=== PATIENT | male | born 1965 | race Caucasian/White ===

== ENCOUNTER 2020-12-21 13:22 | Emergency (ER) | payer BC, SELFPAY ==
--- NOTE | 2020-12-21 14:05 | ED.SKABFB ---
HPI - Skin/Abscess/Foreign Bdy General Chief complaint: Skin/Abscess/Foreign Body Stated complaint: Rash on Face History of Present Illness HPI narrative: This is a 55-year-old male complaining of itching all over his face he stated that his shaved his face and now his face feels like it is on fire. Prior to shaving his mustache he said that his hair was irritated him but now that he is shaved is irritating even more. Related Data Home Medications Medication Instructions Recorded Confirmed alprazolam 12/21/20 12/21/20 baclofen mg 12/21/20 cetirizine mg 12/21/20 esomeprazole magnesium mg 12/21/20 propranolol PO 12/21/20 sertraline mg 12/21/20 sildenafil 12/21/20 trazodone 12/21/20 Allergies Allergy/AdvReac Type Severity Reaction Status Date / Time No Known Allergies Allergy Verified 12/21/20 14:00 Review of Systems Review of Systems: Facial irritation with erythema due to shaving Reviewed all other symptoms negative except for what is mentioned above [facility] Past Medical History Medical History (Updated 12/21/20 @ 14:22 by Paul Elkins NP) Anxiety Comments At time as signature, I have reviewed and agree with nursing past medical, social, surgical and family history. Please see nursing chart for further information. There is no relevant family history pertinent to the presenting complaint. Exam Narrative: GENERAL:Well-appearing, well-nourished, and in no acute distress. HEAD:Normocephalic, c. EYES: PERRLA ENT: Nares clear, no rhinorrhea or epistaxis. Mucous membranes moist. CHEST: Clear to auscultation. No respiratory distress. HEART: Regular rate and rhythm. . ABDOMEN: Soft, nontender, nondistended, normal active bowel sounds. EXTREMITIES: Normal range of motion. No edema. SKIN: Warm, dry, no rash. Erythema and swelling to facial mustache and lenz area with urticaria NEURO: No focal deficits. Alert and oriented x3. MDM - Skin/Abscess/Foreign Bdy Differential Diagnosis Differential diagnosis: Likely abscess of skin or subcutaneous tissue, urticaria, allergic reaction to drug, cellulitis, eczema, contact dermatitis and other Discharge Plan Discharge Clinical Impression: Dermatitis seborrheica, Encounter for wellness examination Patient Disposition: Home, Self-Care Condition: Stable Instructions: Antibiotic Form, Seborrheic Dermatitis (DC) Additional Instructions: Use skin creams/lotion, such as those containing calamine or pramoxine to reduce itchiness Avoid scratching when possible to prevent worsening of the condition and disruption of the skin that could lead to bacterial infection To relieve itching, place a cool washcloth or some ice over the area that itches, rather than scratching Return to the office or seek ER visit if condition is not improving or worsens with fever, swelling, difficulty breathing or swallowing. Prescriptions: New clotrimazole 1 % cream 1 applic topical BID Qty: 30 RF: 0 prednisone 20 mg tablet 20 mg PO DAILY 5 Days Qty: 5 RF: 0 No Action cetirizine 10 mg tablet RF: 0 alprazolam 1 mg tablet RF: 0 sertraline 100 mg tablet RF: 0 sildenafil 100 mg tablet RF: 0 baclofen 20 mg tablet RF: 0 trazodone 100 mg tablet RF: 0 esomeprazole magnesium 40 mg capsule,delayed release(DR/EC) RF: 0 propranolol 80 mg capsule,extended release 24 hr PO RF: 0 Follow-up/Referrals: PHYSICIAN NOT ON STAFF,NONSTAFF [Primary Care Provider] - Stand Alone Forms: Work/School Release IP Time of Disposition: 14:12
== END 2020-12-21 14:30 | disposition home or self-care (01) ==
PROVIDERS: Emergency Provider Nurse Practitioner Family
DX: L21.9 Seborrheic dermatitis, unspecified (principal); F41.9 Anxiety disorder, unspecified
CPT/HCPCS: 96372; 99213; G0463; J1100

== ENCOUNTER 2021-01-01 11:37 | Observation (INO) | payer BC, SELFPAY ==
[2021-01-01] VITALS (7 sets, daily range): BP systolic 119–157; BP diastolic 69–98; PULSE 57–75; RESP 16–25; TEMP 36.4–38.2; O2SAT 95–100; BMI 29.2
--- NOTE | ~2021-01-01 | XR_ITS ---
EXAMINATION: XR chest 1V portable INDICATION: Cough TECHNIQUE: Portable AP chest at 1225 hours COMPARISON: 04/23/2018 FINDINGS: There are airspace opacities of the lung bases. No pleural effusion or pneumothorax is iden tified. The cardiomediastinal silhouette is normal. There are partially imaged changes of cervical fu artis procedure. IMPRESSION: 1. Bibasilar airspace opacities, consistent with atelectasis versus pneumonia. Reviewed, dictated and finalized at location B. ER PLACEMENT SERVICES COUNSELOR
--- NOTE | ~2021-01-01 | CT_ITS ---
EXAMINATION: CTA chest PE protocol DATE: 01/01/2021 14:03 INDICATION: Hemoptysis. Dyspnea. TECHNIQUE: Computed tomography angiography (CTA) of the chest was performed with 100 mL Omnipaque-350 intravenous contrast timed to evaluate the pulmonary arteries. Coronal maximum intensity projection 3D-reconstructions were created by the technologist. Automated exposure control and iterative reconst ruction technique were employed. The dose-length product was 788.57 mGy-cm. COMPARISON: CT abdomen and pelvis 07/26/2016 FINDINGS: There are patchy ground glass opacities involving the right upper lobe, right middle lobe, and lower lobes. There is mild atelectasis bilaterally. No pleural effusion. The heart size is normal . No pericardial effusion. There are coronary artery calcifications. There is no pulmonary embolus. T here is mild right hilar lymphadenopathy, likely reactive. There are surgical changes of the stomach. There is a small sliding hiatal hernia. There is an old healed fracture of left clavicle. There is m ild thoracic spondylosis. There are changes of anterior fusion procedure in cervical spine. IMPRESSION: 1. No pulmonary embolus. Sensitivity is moderately decreased by motion artifact. 2. Multifocal lung disease, right worse than left, consistent with pneumonia. 3. Mild right hilar lymphadenopathy, reactive. Reviewed, dictated and finalized at location A. [facility] IMPRESSION: 1. No pulmonary embolus. Sensitivity is moderately decreased by motion artifact . 2. Multifocal lung disease, right worse than left, consistent with pneumonia. 3. Mild right hilar lymphadenopathy, reactive.
--- NOTE | 2021-01-01 12:37 | ED.FEVER ---
HPI - Fever General Chief Complaint: Fever Stated Complaint: chills, purcell, vomiting Time Seen by Provider: 01/01/21 12:28 Source: RN notes reviewed History of Present Illness HPI Narrative: Patient presents emergency room from home for upper respiratory infection. Patient states symptoms again approximately 10 days ago. States is associated with subjective fevers, frontal headache, rhinorrhea, sore throat a cough productive of yellow sputum as well as coughing that is producing some bright red blood epigastric abdominal pain and nausea. The patient denies any chest pain he denies any diarrhea. States he took Tylenol approximately 3 hours ago states he has had both of his Covid vaccinations Related Data Home Medications Medication Instructions Recorded Confirmed alprazolam 1 mg PO TID PRN 12/21/20 01/01/21 baclofen 20 mg PO QID 12/21/20 01/01/21 cetirizine 10 mg PO DAILY PRN 12/21/20 01/01/21 esomeprazole magnesium 40 mg PO BID 12/21/20 01/01/21 propranolol 80 mg PO DAILY 12/21/20 01/01/21 sertraline 150 mg PO DAILY 12/21/20 01/01/21 sildenafil 100 mg PO DAILY PRN 12/21/20 01/01/21 trazodone 150 mg PO HS 12/21/20 01/01/21 amlodipine 10 mg PO DAILY 01/01/21 01/01/21 divalproex 1,000 mg PO TID PRN 01/01/21 01/01/21 multivit with min-folic acid 0.4 tablet PO AC 01/01/21 01/01/21 [Adult One Daily Multivitamin] Allergies Allergy/AdvReac Type Severity Reaction Status Date / Time No Known Allergies Allergy Verified 12/21/20 14:00 Review of Systems Review of Systems: Gen.: Reports subjective fevers, denies chills Eyes: Denies eye pain or visual change ENT: See HPI Respiratory: Denies shortness of breath reports cough CV: Denies chest pain or palpitations GI: Reports epigastric abdominal pain and nausea denies emesis or diarrhea Musculoskeletal: Denies back pain or muscle pain Neuro: Denies numbness, tingling, weakness or focal weakness Skin: Denies rash Except as documented, all other systems reviewed and negative PMFSH Past Medical History Medical History (Updated 01/01/21 @ 16:49 by Jose Real DO) Anxiety Social History Social History (Updated 01/01/21 @ 12:38 by Jose Real DO) Smoking status: Never smoker Exam Narrative: APPEARANCE: No acute distress, nontoxic, resting in bed EYES: EOMI HEENT: Normocephalic, atraumatic, bilateral turbinates boggy, mild erythema with no exudate posterior pharynx and bilateral tonsils uvula midline RESPIRATORY: No respiratory distress Clear to auscultation bilaterally with no rhonchi wheezing or rales. CARDIOVASCULAR: Regular rate and rhythm without murmurs rubs or gallops. ABDOMINAL: Soft, nontender, nondistended, no rebound or guarding MUSCULOSKELETAl: Moves all extremities. No clubbing, cyanosis or edema. NEURO: Awake and alert. Following commands, speech normal, no focal deficits SKIN:: Warm, dry. 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 Discussed need for admission. Patient and family understand and agree to current treatment plan Vital Signs Vital signs: Vital Signs Temperature 97.6 F 01/01/21 11:48 Pulse Rate 75 01/01/21 11:48 Respiratory Rate 16 01/01/21 11:48 Blood Pressure 157/75 H 01/01/21 11:48 Pulse Oximetry 100 01/01/21 11:48 Temperature 98.8 F 01/01/21 15:39 Pulse Rate 70 01/01/21 15:39 Respiratory Rate 18 01/01/21 15:39 Blood Pressure 152/98 H 01/01/21 15:39 Pulse Oximetry 95 01/01/21 15:39 MDM - Fever Lab Data Result diagrams: 01/01/21 13:12 01/01/21 13:12 Labs: Lab Results 01/01/21 01/01/21 Range/Units 13:12 13:12 WBC 15.5 H (4.5-10.0) K/mm3 RBC 5.00 (4.6-6.20) M/mm3 Hgb 15.8 (14.0-18.0) g/dL Hct 46.3 (42.0-52.0) % MCV 92.6 (80-10
[2021-01-01] MEDS: SODIUM CHLORIDE 0.9% IV 1,000 ML 999 ML IV CONT (13:18)
[2021-01-01 13:20] LABS: Basophils Percent Auto 0.2 % (0.2-1.2); Eosinophils Absolute Auto 0.1 K/mm3 (0-0.3); Eosinophils Percent Auto 0.8 % (0-4.4); Hematocrit 46.3 % (42.0-52.0); Hemoglobin 15.8 g/dL (14.0-18.0); Immature Granulocyte Absolute 0.06 K/mm3 (0.00-0.031); Immature Granulocyte Percent A 0.4 % (0-0.5); Lymphocytes Absolute Auto 1.21 K/mm3 (0.9-3.2); Lymphocytes Percent Auto 7.8 % (18.3-44.2); Mean Corpuscular HGB Conc 34.1 g/dl (32-36); Mean Corpuscular Hemoglobin 31.6 pg (26-34); Mean Corpuscular Volume 92.6 fl (80-100); Monocytes Absolute Auto 0.9 K/mm3 (0.1-0.6); Monocytes Percent Auto 5.6 % (2.6-8.5); Neutrophils Absolute Auto 13.2 K/mm3 (1.3-6.7); Neutrophils Percent Auto 85.2 % (45.5-73.1); Platelet Count Result 258 k/mm3 (150-375); Red Cell Distribution Width 14.5 % (11.5-14.5); White Blood Count 15.5 K/mm3 (4.5-10.0)
[2021-01-01 13:38] LABS: Alanine Aminotransferase 15 U/L (4-50); Albumin Level 4.6 g/dL (3.5-5.1); Alkaline Phosphatase 111 U/L (38-126); Anion Gap 11 mmol/L (8-16); Aspartate Amino Transferase 22 U/L (17-59); Blood Urea Nitrogen 11 mg/dL (9-20); Calcium 9.7 mg/dL (8.4-10.2); Carbon Dioxide 25 mmol/L (22-30); Chloride 100 mmol/L (98-107); Estimated CRCL calculation 149 ml/min; Estimated Glomerular Filt Rate > 60; Glucose 102 mg/dL (65-110); Lipase 100 U/L (23-300); Potassium 4.1 mmol/L (3.4-5.0); Sodium 136 mmol/L (137-145)
[2021-01-01] MEDS: KETOROLAC 30 MG/ML VIAL (*BKC) IV PUSH (14:52)
[2021-01-01 15:26] LABS: Lactic Acid Reflex 0.7 mmol/L (0.7-2.1)
[2021-01-01] MEDS: SODIUM CHLORIDE 0.9% IV 1,000 ML 125 ML IV CONT (17:12)
--- NOTE | 2021-01-01 17:48 | ADMGEN ---
This patient, Eleuterio Rico, was admitted to [facility] Surg Room 311-01 at 1622. Patient/family oriented to hospital policies and general routines including ID bracelet, bed and alarms, visiting hours, pain management, procedures, bathroom and other care routines, personal items, smoking policy, room service/diet, and visiting hours. Information on how to activate the Rapid Response Team has been discussed. Patient/Family are encouraged to report perceived risks to care and to ask questions if they do not understand what they are told or what they should do.
[2021-01-01] MEDS: ACETAMINOPHEN 325 MG TABLET 650 MG PO (18:19)
[2021-01-01] MEDS: HYDROmorphone HCL INJ (*CRX) 1 MG/ML SYR IV PUSH ×2 (19:57→23:37)
[2021-01-01] MEDS: ALPRAZolam (*CRX) 0.5 MG TABLET 1 MG PO (19:58)
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
[2021-01-01 22:30] LABS: Add Urine Microscopic? YES; Appearance Urine Clear (Clear); Bacteria Urine Trace /hpf; Bilirubin Urine 1+ (Negative); Blood Urine Negative (Negative); Color Urine Amber (Yellow); Glucose Urine UA Negative (Negative); Ketones Urine 1+ mg/dL (Negative); Leukocyte Esterase Ur Negative LEU/UL (Negative); Mucus Urine Heavy /lpf; Nitrate Urine Negative (Negative); Protein Urine 1+ mg/dL (Negative); WBC Urine 0-3 /hpf
[2021-01-01] MEDS: PANTOPRAZOLE 40 MG TABLET PO (23:20)
[2021-01-01] MEDS: DIVALPROEX SODIUM DR 250 MG TABEC 1000 MG PO (23:20)
[2021-01-01] MEDS: BACLOFEN 10 MG TABLET 20 MG PO (23:20)
[2021-01-01] MEDS: traZODone HCL 50 MG TABLET 150 MG PO (23:20)
[2021-01-02] VITALS: BP 116/78; PULSE 48; RESP 18; TEMP 36.3; O2SAT 98
[2021-01-02] MEDS: SODIUM CHLORIDE 0.9% IV 1,000 ML 125 ML IV CONT (01:19)
[2021-01-02 03:55] VITALS: BP 105/61; PULSE 48; RESP 20; TEMP 36.6; O2SAT 94
[2021-01-02 05:59] LABS: Magnesium 1.8 mg/dL (1.6-2.3)
[2021-01-02 06:05] LABS: Alanine Aminotransferase 10 U/L (4-50); Albumin Level 3.2 g/dL (3.5-5.1); Alkaline Phosphatase 76 U/L (38-126); Anion Gap 6 mmol/L (8-16); Aspartate Amino Transferase 15 U/L (17-59); Bilirubin,Total 0.5 mg/dL (0.2-1.3); Blood Urea Nitrogen 9 mg/dL (9-20); Calcium 8.2 mg/dL (8.4-10.2); Carbon Dioxide 29 mmol/L (22-30); Chloride 105 mmol/L (98-107); Estimated CRCL calculation 149 ml/min; Estimated Glomerular Filt Rate > 60; Glucose 91 mg/dL (65-110); Potassium 3.7 mmol/L (3.4-5.0); Sodium 140 mmol/L (137-145)
[2021-01-02 06:08] LABS: Basophils Percent Auto 0.1 % (0.2-1.2); Eosinophils Absolute Auto 0.4 K/mm3 (0-0.3); Eosinophils Percent Auto 3.6 % (0-4.4); Hematocrit 38.9 % (42.0-52.0); Immature Granulocyte Absolute 0.04 K/mm3 (0.00-0.031); Immature Granulocyte Percent A 0.4 % (0-0.5); Lymphocytes Absolute Auto 3.06 K/mm3 (0.9-3.2); Mean Corpuscular HGB Conc 33.4 g/dl (32-36); Mean Corpuscular Hemoglobin 31.3 pg (26-34); Mean Corpuscular Volume 93.7 fl (80-100); Mean Platelet Volume 9.7 fl (7.4-10.4); Monocytes Absolute Auto 0.5 K/mm3 (0.1-0.6); Monocytes Percent Auto 4.7 % (2.6-8.5); Neutrophils Absolute Auto 6.6 K/mm3 (1.3-6.7); Neutrophils Percent Auto 62.2 % (45.5-73.1); Platelet Count Result 197 k/mm3 (150-375); Red Blood Count 4.15 M/mm3 (4.6-6.20); Red Cell Distribution Width 14.5 % (11.5-14.5); White Blood Count 10.6 K/mm3 (4.5-10.0)
[2021-01-02 08:08] VITALS: BP 112/72; PULSE 56; RESP 16; TEMP 36.6; O2SAT 96
[2021-01-02] MEDS: THERAPEUTIC MULTIVITAMINS/MINERALS TAB (*BKC) 1 TABLET PO (08:28)
[2021-01-02] MEDS: FOLIC ACID 0.4 MG TABLET PO (08:28)
[2021-01-02] MEDS: ENOXAPARIN 40 MG/0.4 ML SYRINGE SUB-Q (08:28)
[2021-01-02] MEDS: BACLOFEN 10 MG TABLET 20 MG PO ×2 (08:28→13:11)
[2021-01-02] MEDS: ALPRAZolam (*CRX) 0.5 MG TABLET 1 MG PO ×2 (08:29→13:11)
[2021-01-02 08:30] VITALS: PULSE 88
[2021-01-02] MEDS: PROPRANOLOL HCL 40 MG TABLET 80 MG PO (08:30)
[2021-01-02] MEDS: PANTOPRAZOLE 40 MG TABLET PO (08:30)
[2021-01-02] MEDS: amLODIPine BESYLATE 5 MG TABLET 10 MG PO (08:30)
[2021-01-02] MEDS: HYDROmorphone HCL INJ (*CRX) 1 MG/ML SYR IV PUSH (10:55)
[2021-01-02] MEDS: DIVALPROEX SODIUM DR 250 MG TABEC 500 MG PO (10:56)
[2021-01-02] MEDS: SERTRALINE HCL 50 MG TABLET 150 MG PO (10:56)
[2021-01-02 12:39] VITALS: BP 125/88; PULSE 50; RESP 18; TEMP 36.2; O2SAT 97
--- NOTE | 2021-01-02 14:10 | PM.IMPN ---
Progress Note: A&P Assessment and Plan (1) Sepsis: Code(s): A41.9 - Sepsis, unspecified organism Status: Acute Assessment and Plan: -technically met SIRS criteria on arrival w/ leukocytosis of 15.5 with a temp up to 100.7 and tachypnea w/ respirations of 25 -Lactate negative -he has improved on all fronts, no fever x24 hours, WBC improved at 10.6, HR 48 and respirations 18 -IVF have been discontinued -Still on Rocephin/azithromycin for pneumonia -Covid pending -Prelim blood cultures negative (2) Community acquired pneumonia: Code(s): J18.9 - Pneumonia, unspecified organism Status: Acute Assessment and Plan: -Chest CTA w/ multifocal lung disease -Was started on Rocephin/azithromycin -Covid pending -He is 100% on RA at this time (3) Suspected 2019-nCoV infection: Code(s): Z20.822 - Contact with and (suspected) exposure to COVID-19 Status: Acute Assessment and Plan: -See above -Fully vaccinated -Covid pending (4) Hypertension: Code(s): I10 - Essential (primary) hypertension Status: Acute Assessment and Plan: -reasonably well controlled -continue home meds (5) Chronic back pain: Code(s): M54.9 - Dorsalgia, unspecified; G89.29 - Other chronic pain Status: Acute Assessment and Plan: -takes baclofen QID x many years, will continue this (6) Anxiety: Code(s): F41.9 - Anxiety disorder, unspecified Status: Acute Assessment and Plan: -Continue Zoloft -Continue Xanax 1 mg PO TID (7) Migraine headache: Code(s): G43.909 - Migraine, unspecified, not intractable, without status migrainosus Status: Inactive Assessment and Plan: -sees neurologist -takes Depakote 500 mg TID for prevention -minimal relief with migraine cocktail yesterday -will give one time dose of Dilaudid for his migraine -Likely exacerbated/precipitated by current illness Subjective Date/time seen: 01/02/21 14:10 Interval history: 55 yo male admitted for pneumonia. Today patient is frustrated as he reports he has had issues getting his medications on time since being admitted. He complains of continued migraine and notes the migraine cocktail only minimally helped last night. He has not had any improvement in his symptoms including tactile fever, rhinorrhea, sore throat, productive cough, sob, epigastric pain, and nausea. He notes chest pain only when coughing. He is fully vaccinated for covid. His covid test is pending. Review of Systems Review of Systems: General: + fevers, + chills, + bodyaches, + fatigue Eyes: Denies vision changes or eye pain ENT: + nasal congestion + sore throat Respiratory: + cough + shortness of breath Cardiovascular: + chest pain,no palpitations lower extremity edema Gastrointestinal: + abdominal pain, no vomiting or diarrhea Genitourinary: Denies dysuria or urinary frequency Musculoskeletal: + back pain + muscle aches Neurological: + headache, no paraesthesias or motor weakness Integumentary: Denies rash or other skin lesions Exam Narrative: General: NAD, non toxic, agitated HEENT: PERRL, EOMI. Sclerae anicteric. Conjunctiva mildly injected. Tacky mucous membranes. Oropharynx mildly erythematous. No exudate. Neck: Supple. No adenopathy or JVD. Respiratory: No respiratory distress. Coarse breath sounds at the bases. No wheezing. Cardiovascular: Regular rate and rhythm with S1-S2. Gastrointestinal: Abdomen is soft, nontender, and nondistended with positive bowel sounds. Skin: Warm and dry. No rash or lesions on limited exam. Extremities: No cyanosis, clubbing, or edema. Radial and pedal pulses intact. Neurological: Alert. Cranial nerves 2-12 are grossly intact. No gross focal deficits to casual conversation. Psychiatric: normal mood and affect. Objective Data Vital Signs Vital Signs: Vital Signs - 24 hr 01/01/21 14:11 01/01/21
--- NOTE | 2021-01-02 15:34 | PC.NURSE ---
This nurse made aware that patient was wanting to leave AMA. This nurse notified provider. Provider noted that was unable to come see the patient at this moment and if patient continued to leave would leave AMA. This nurse and the floor nurse discussed with patient. Patient stated he had to leave to go get his son. This nurse informed patient of medical risks and possible financial risks with signing AMA. Patient continues to want to leave AMA. IV site DC'd with catheter tip intact. Patient signed AMA form and then shredded and refused to sign. Floor nurse present during conversation and witnessed patient refusing to resign AMA. Patient ambulated off of floor with all of belongings and escorted to ER entrance to vehicle at 1525. supervisor tower made aware of patient leaving AMA.
[2021-01-02 17:30] LABS: SARS-CoV-2 RNA PCR Negative
[2021-01-04 19:27] LABS: Pneumococcal Antigen Urine Not Detected (Not Detected)
[2021-01-05 23:58] LABS: Legionella pneumophila Ag Ur Not Detected (Not Detected)
== END 2021-01-02 15:25 | disposition left against medical advice (07) ==
LOC: ANHED 12:28 → ANH3MEDSUR 16:26
PROVIDERS: Physician Assistant; Admitting Provider Internal Medicine; Emergency Provider Emergency Medicine; Visit Provider Physician Assistant
DX: A41.9 Sepsis, unspecified organism (principal); J18.9 Pneumonia, unspecified organism; I10 Essential (primary) hypertension; G89.29 Other chronic pain; M54.9 Dorsalgia, unspecified; F41.9 Anxiety disorder, unspecified; G43.909 Migraine, unspecified, not intractable, without status migrainosus; Z20.822 Contact with and (suspected) exposure to COVID-19
CPT/HCPCS: 36415; 71045; 71275; 80053; 81001; 83605; 83690; 83735; 84145; 85025; 87040; 87081; 87147; 87181; 87186; 87449; 87804; 87880; 87899; 96361; 96365; 96366; 96367; 96372; 96375; 96376; 99285; A9270; C9803; G0378; J0456; J0696; J1170; J1650; J1885; J7030; Q9967; U0003; U0005

== ENCOUNTER 2021-01-03 07:48 | Inpatient (IN) | payer BC, SELFPAY ==
[2021-01-03] VITALS (19 sets, daily range): BP systolic 104–132; BP diastolic 74–97; PULSE 54–80; RESP 9–18; TEMP 36.6–36.9; O2SAT 96–100; BMI 30.5
--- NOTE | ~2021-01-03 | XR_ITS ---
EXAMINATION: XR chest 2V DATE: 01/03/2021 08:15 INDICATION: Cough TECHNIQUE: PA and lateral views of the chest are obtained. COMPARISON: 01/01/2014 FINDINGS: Patchy opacities persist in the mid and lower lung zones with slight worsening. There is no pleural effusion or pneumothorax. The cardiomediastinal silhouette is normal. There is mild thoracic spondylosis. Changes of anterior fusion procedure are noted in the cervical spine. IMPRESSION: 1. Patchy airspace opacities abdomen and lower lung zones with slight worsening, consistent with pneu monia. Reviewed, dictated and finalized at location A. ON WEIGHER IMPRESSION: 1. Patchy airspace opacities abdomen and lower lung zones with slight worsening , consistent with pneumonia.
[2021-01-03] MEDS: SODIUM CHLORIDE 0.9% IV 1,000 ML 999 ML IV CONT ×2 (08:36→08:57)
[2021-01-03 09:16] LABS: Basophils Percent Auto 0.2 % (0.2-1.2); Eosinophils Absolute Auto 0.2 K/mm3 (0-0.3); Eosinophils Percent Auto 1.6 % (0-4.4); Hemoglobin 12.8 g/dL (14.0-18.0); Immature Granulocyte Absolute 0.07 K/mm3 (0.00-0.031); Immature Granulocyte Percent A 0.6 % (0-0.5); Lymphocytes Absolute Auto 1.85 K/mm3 (0.9-3.2); Lymphocytes Percent Auto 15.7 % (18.3-44.2); Mean Corpuscular HGB Conc 33.7 g/dl (32-36); Mean Corpuscular Hemoglobin 31.4 pg (26-34); Mean Corpuscular Volume 93.4 fl (80-100); Mean Platelet Volume 9.5 fl (7.4-10.4); Monocytes Absolute Auto 0.5 K/mm3 (0.1-0.6); Monocytes Percent Auto 4.4 % (2.6-8.5); Neutrophils Absolute Auto 9.1 K/mm3 (1.3-6.7); Neutrophils Percent Auto 77.5 % (45.5-73.1); Platelet Count Result 231 k/mm3 (150-375); Red Blood Count 4.07 M/mm3 (4.6-6.20); Red Cell Distribution Width 14.5 % (11.5-14.5); White Blood Count 11.8 K/mm3 (4.5-10.0)
[2021-01-03 09:27] LABS: Alanine Aminotransferase 11 U/L (4-50); Albumin Level 3.5 g/dL (3.5-5.1); Alkaline Phosphatase 68 U/L (38-126); Anion Gap 6 mmol/L (8-16); Aspartate Amino Transferase 16 U/L (17-59); Bilirubin,Total 0.6 mg/dL (0.2-1.3); Blood Urea Nitrogen 3 mg/dL (9-20); Carbon Dioxide 27 mmol/L (22-30); Chloride 105 mmol/L (98-107); Estimated CRCL calculation 149 ml/min; Estimated Glomerular Filt Rate > 60; Glucose 102 mg/dL (65-110); Lactic Acid Reflex 1.2 mmol/L (0.7-2.1); Potassium 3.9 mmol/L (3.4-5.0); Sodium 138 mmol/L (137-145)
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
[2021-01-03] MEDS: MORPHINE SULFATE (*CRX) 4 MG/ML INJ IV PUSH ×4 (11:21→21:50)
[2021-01-03] MEDS: KETOROLAC 15 MG/ML VIAL (*BKC) IV PUSH (11:25)
[2021-01-03] MEDS: SODIUM CHLORIDE 0.9% IV 1,000 ML 125 ML IV CONT (12:06)
--- NOTE | 2021-01-03 12:32 | ADMGEN ---
This patient, Eleuterio Rico, was admitted to Medical Room 251-. Patient oriented to hospital policies and general routines including ID bracelet, bed and alarms, visiting hours, pain management, procedures, bathroom and other care routines, personal items, smoking policy, room service/diet, and visiting hours. Information on how to activate the Rapid Response Team has been discussed. Patient are encouraged to report perceived risks to care and to ask questions if they do not understand what they are told or what they should do.
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
[2021-01-03] MEDS: predniSONE 20 MG TABLET 40 MG PO (15:49)
[2021-01-03] MEDS: ALPRAZolam (*CRX) 0.5 MG TABLET 1 MG PO ×2 (15:50→21:38)
[2021-01-03] MEDS: BACLOFEN 10 MG TABLET 20 MG PO ×2 (17:09→21:38)
[2021-01-03] MEDS: DIVALPROEX SODIUM DR 250 MG TABEC 1000 MG PO (17:27)
[2021-01-03] MEDS: PANTOPRAZOLE 40 MG TABLET PO (17:27)
[2021-01-03] MEDS: amLODIPine BESYLATE 5 MG TABLET 10 MG PO (18:12)
[2021-01-03] MEDS: PROPRANOLOL HCL 40 MG TABLET PO (18:13)
[2021-01-03] MEDS: LORATADINE 10 MG TABLET PO (18:13)
[2021-01-03] MEDS: MULTIVITAMINS /C LUTEIN (CENTRUM SILVER) TABLET *BKC 1 TAB PO (18:13)
[2021-01-03] MEDS: SERTRALINE HCL 50 MG TABLET 150 MG PO (18:13)
--- NOTE | 2021-01-03 19:28 | PC.NURSE ---
Dilaudid 1mg given at 0900. Unable to chart administration in APR due to late entry and discontinued status. Will discuss with pharmacy
[2021-01-03] MEDS: traZODone HCL 50 MG TABLET 150 MG PO (21:50)
[2021-01-04] VITALS (12 sets, daily range): BP systolic 114–140; BP diastolic 72–82; PULSE 50–61; RESP 16–18; TEMP 35.8–36.3; O2SAT 97–100; BMI 30.5
[2021-01-04] MEDS: MORPHINE SULFATE (*CRX) 4 MG/ML INJ IV PUSH ×4 (01:25→10:57)
[2021-01-04] MEDS: ALPRAZolam (*CRX) 0.5 MG TABLET 1 MG PO ×3 (05:02→21:01)
[2021-01-04 05:56] LABS: Hematocrit 35.1 % (42.0-52.0); Hemoglobin 11.7 g/dL (14.0-18.0); Mean Corpuscular HGB Conc 33.3 g/dl (32-36); Mean Corpuscular Hemoglobin 31.6 pg (26-34); Mean Corpuscular Volume 94.9 fl (80-100); Mean Platelet Volume 9.5 fl (7.4-10.4); Platelet Count Result 197 k/mm3 (150-375); Red Cell Distribution Width 14.2 % (11.5-14.5)
[2021-01-04 06:07] LABS: Alanine Aminotransferase 10 U/L (4-50); Alkaline Phosphatase 65 U/L (38-126); Anion Gap 3 mmol/L (8-16); Aspartate Amino Transferase 14 U/L (17-59); Bilirubin,Total 0.5 mg/dL (0.2-1.3); Blood Urea Nitrogen 3 mg/dL (9-20); Calcium 8.7 mg/dL (8.4-10.2); Carbon Dioxide 28 mmol/L (22-30); Chloride 109 mmol/L (98-107); Estimated CRCL calculation 204 ml/min; Estimated Glomerular Filt Rate > 60; Glucose 132 mg/dL (65-110); Potassium 3.9 mmol/L (3.4-5.0); Sodium 140 mmol/L (137-145)
[2021-01-04] MEDS: amLODIPine BESYLATE 5 MG TABLET 10 MG PO (08:11)
[2021-01-04] MEDS: MULTIVITAMINS /C LUTEIN (CENTRUM SILVER) TABLET *BKC 1 TAB PO (08:12)
[2021-01-04] MEDS: PROPRANOLOL HCL 40 MG TABLET PO ×2 (08:13→21:00)
[2021-01-04] MEDS: SERTRALINE HCL 50 MG TABLET 150 MG PO (08:13)
[2021-01-04] MEDS: BACLOFEN 10 MG TABLET 20 MG PO ×4 (08:15→21:00)
[2021-01-04] MEDS: predniSONE 20 MG TABLET 40 MG PO (08:15)
[2021-01-04] MEDS: PANTOPRAZOLE 40 MG TABLET PO ×2 (08:15→17:00)
[2021-01-04] MEDS: DIVALPROEX SODIUM DR 250 MG TABEC 1000 MG PO ×3 (08:16→17:01)
[2021-01-04] MEDS: ENOXAPARIN 40 MG/0.4 ML SYRINGE SUB-Q (08:16)
[2021-01-04] MEDS: LORATADINE 10 MG TABLET PO (08:17)
--- NOTE | 2021-01-04 08:23 | PC.NURSE ---
While assessing pt, he began demanding morphine. I asked pt what his pain level was to which he replied that his pain level was 5 for his body and 6 for his head. I informed him that I could not give morphine as his pain level was not to the level that allowed for me to administer it. He became enraged and quite belligerent demanding that I give him morphine now. He continued with that he is scheduled to have it and he wants it now. I attempted to explain that it was not scheduled but only as needed and that his pain level does not warrant it at this time. He began shouting and cursing and demanding the morphine now and began stating, my pain is a 12 then give me my goddamn morphine!
--- NOTE | 2021-01-04 12:04 | PC.NURSE ---
As I attempted to pass pt's schedule noon meds, he informed me that he cannot take more than 1500 of depakote as it messes with my liver. I informed him that he took 1000mg at 0800 and has 1000mg scheduled for now. He repeated his previous statement and then threw the pills into his mouth and swallowed them. Pt has repeatedly told me that he has a headache/migraine since 0715 this morning including when I walked into the room right now. Pt has demanded 4mg of morphine every 120 minutes claiming to have a headache and body ache of 8/10 or higher. Pt currently states that his pain level, including that in his head, is still an 8/10 despite having recently received another 4mg of morphine.
--- NOTE | 2021-01-04 12:07 | PM.IMPN ---
Progress Note: A&P Assessment and Plan (1) Bacteremia due to methicillin susceptible Staphylococcus aureus (MSSA): Code(s): R78.81 - Bacteremia; B95.61 - Methicillin susceptible Staphylococcus aureus infection as the cause of diseases classified elsewhere Status: Acute Assessment and Plan: Patient has sepsis last admission. She he does not qualify for sepsis this admission. He was bacteremic last admission with 1 blood culture growing methicillin sensitive Staph aureus and coag-negative staph. The 2nd blood culture is pending but is positive for Gram-positive cocci. Suspect pneumonia as the source. Continue vancomycin. Repeat blood cultures. Narrow antibiotic coverage 2nd blood culture bottle results are known and repeat blood cultures are negative. (2) Pneumonia: Qualifiers: Laterality: unspecified laterality Lung location: unspecified part of lung Pneumonia type: due to unspecified organism Qualified Code(s): J18.9 - Pneumonia, unspecified organism Code(s): J18.9 - Pneumonia, unspecified organism Status: Acute Assessment and Plan: Chest CTA on 01/01/2021 showing no pulmonary emboli but did show multifocal lung disease right worse than left consistent with pneumonia. Chest x-ray on readmission showing patchy airspace opacities in the mid and lower lung zones. He was started on Rocephin and azithromycin. Vancomycin has been added related to the positive blood culture. Will add albuterol nebs. Continue prednisone for now for 5 day course. Urine Legionella antigen pending. (3) Hypertension: Qualifiers: Hypertension type: unspecified Qualified Code(s): I10 - Essential (primary) hypertension Code(s): I10 - Essential (primary) hypertension Status: Acute Assessment and Plan: Patient's blood pressure was reviewed on 01/04 Blood pressure remains well controlled. Will continue current medications. (4) PTSD (post-traumatic stress disorder): Code(s): F43.10 - Post-traumatic stress disorder, unspecified Status: Acute Assessment and Plan: Patient with PTSD and anxiety. He also appears to have chronic pain issues as well as anger issues. Continue divalproex, alprazolam and trazodone. (5) DVT prophylaxis: Code(s): Z29.9 - Encounter for prophylactic measures, unspecified Status: Acute Assessment and Plan: Denilson Subjective Date/time seen: 01/04/21 12:07 Interval history: 55yo male with chronic pain, HTN and PTSD who returns after signing himself out AMA. he was initially admitted on 01/01 for PNA and treated for CAP. He signed out AMA on 01/02. He was notified that his BCx had returned positive and he returned to the ED on 01/03 and was re-admitted. Assuming care. Chart reviewed. Patient complains of chronic pain diffusely. He still having cough productive brown sputum with occasional hemoptysis. He does have pleuritic chest pain. Slight nausea but no vomiting or diarrhea. He also mentions that he has had pancreatitis twice this year. Nursing staff patient is being belligerent when he is not getting his pain medications on demand. Exam Narrative: AF 96.8 126/82 50 16 99% ra Gen - NARD Chest - expiratory wheezes diffusely. nml RR CV - RRR S1/S2 Abd - Soft, NT/ND, Positive BS Ext - No pedal edema Psych - agitated and angry at times. Skin - Warm and dry Objective Data Vital Signs Vital Signs: Vital Signs - 24 hr 01/03/21 12:28 01/03/21 13:56 01/03/21 15:04 Temperature 98.4 F 98.3 F Pulse Rate 80 65 Respiratory Rate 14 14 Blood Pressure 132/97 H 131/76 Pulse Oximetry 100 97 99 01/03/21 18:13 01/03/21 22:00 01/04/21 06:00 Temperature 97.9 F 96.8 F L Pulse Rate 68 70 61 Respiratory Rate 18 16 Blood Pressure 131/76 126/82 Pulse Oximetry 97 99 01/04/21 08:13 Temperature Pulse Rate 50 L Respiratory Rate Blood Pressure Pulse Oximetry Intake
[2021-01-04] MEDS: ALBUTEROL SULFATE NEB 2.5 MG/0.5 ML INH INHALATION ×2 (13:31→20:02)
[2021-01-04] MEDS: MORPHINE SULFATE (*CRX) 4 MG/ML INJ 2 MG IV PUSH ×2 (17:06→21:01)
[2021-01-04] MEDS: traZODone HCL 50 MG TABLET 150 MG PO (21:01)
[2021-01-05] VITALS (11 sets, daily range): BP systolic 130–146; BP diastolic 86–87; PULSE 48–64; RESP 16–20; TEMP 35.9–36.4; O2SAT 93–99
--- NOTE | 2021-01-05 | ECHO_ITS ---
Patient Info Name: Eleuterio Leung Ray Age: 55 years : 1965 Gender: Male Ht: 72 in Wt: 225 lbs BSA: 2.30 m2 HR: 55 bpm BP: 130 / 86 mmHg Exam Date: 01/05/2021 1:26 PM Exam Location: [facility] Patient Status: Inpatient Admit Date: 01/03/2021 Staff Ordering Physician: Red Aguayo MD Verify Rep: Get [place] RDCS, RT Attending Provider: Mike Davila MD Exam Type: CA echo doppler color flow Study Info Indications I51.9 - Heart disease, unspecified Complete two-dimensional, color flow and Doppler transthoracic echocardiogram is performed. Strain analysis performed. Summary 1. Complete two-dimensional, color flow and Doppler transthoracic echocardiogram is performed. 2. Left ventricular chamber dimension is normal. 3. Left ventricular systolic function is normal, estimated at 60-65%. 4. There is mildly increased left ventricular wall thickness. 5. The left ventricular diastolic function is normal. 6. E/e' 9 is minimally elevated. 7. Left atrial chamber dimension is mildly enlarged. 8. Right atrial chamber dimension is mildly enlarged. 9. There is mild aortic valve sclerosis. 10. There is mild mitral valve regurgitation. 11. There is trace tricuspid valve regurgitation. 12. Mild pulmonary hypertension, estimated pulmonary arterial systolic pressure is 41 mmHg. 13. Dilated inferior vena cava with >50% collapse upon inspiration consistent with elevated right atrial pressure, 10 mmHg. Left Ventricle E/e' 9 is minimally elevated. Left ventricular chamber dimension is normal. Left ventricular systolic function is normal, estimated at 60-65%. There is mildly increased left ventricular wall thickness. The left ventricular diastolic function is normal. Right Ventricle Right ventricular systolic function is normal and with normal TAPSE 3.5 cm. Right ventricular chamber dimension is normal. Left Atria Left atrial chamber dimension is mildly enlarged. Right Atria Right atrial chamber dimension is mildly enlarged. Aortic Valve The aortic valve is trileaflet. There is mild aortic valve sclerosis. There is no aortic valve stenosis. There is no aortic valve regurgitation. No aortic valve vegetation visualized. Pulmonic Valve There is no pulmonic regurgitation. Mitral Valve There is no mitral valve stenosis. There is mild mitral valve regurgitation. No mitral valve vegetation visualized. Tricuspid Valve There is trace tricuspid valve regurgitation. Mild pulmonary hypertension, estimated pulmonary arterial systolic pressure is 41 mmHg. No tricuspid valve vegetation visualized. Pericardium/Pleural There is no pericardial effusion. Inferior Vena Cava Dilated inferior vena cava with >50% collapse upon inspiration consistent with elevated right atrial pressure, 10 mmHg. Aorta The aortic root size at the sinus of Valsalva is normal. Left Ventricular Outflow Tract Name Value Normal LVOT 2D LVOT Diameter 2.1 cm LVOT Doppler LVOT Peak Gradient 7 mmHg LVOT Mean Gradient 4 mmHg LVOT VTI
[2021-01-05] MEDS: MORPHINE SULFATE (*CRX) 4 MG/ML INJ 2 MG IV PUSH ×4 (01:02→14:17)
[2021-01-05 02:05] LABS: Vancomycin Trough 7.2 ug/mL (10.0-20.0)
[2021-01-05] MEDS: ALPRAZolam (*CRX) 0.5 MG TABLET 1 MG PO ×3 (05:04→22:20)
[2021-01-05 05:54] LABS: Basophils Percent Auto 0.1 % (0.2-1.2); Eosinophils Absolute Auto 0.1 K/mm3 (0-0.3); Eosinophils Percent Auto 0.7 % (0-4.4); Hematocrit 33.8 % (42.0-52.0); Hemoglobin 11.2 g/dL (14.0-18.0); Immature Granulocyte Absolute 0.04 K/mm3 (0.00-0.031); Immature Granulocyte Percent A 0.4 % (0-0.5); Lymphocytes Absolute Auto 3.07 K/mm3 (0.9-3.2); Lymphocytes Percent Auto 32.8 % (18.3-44.2); Mean Corpuscular HGB Conc 33.1 g/dl (32-36); Mean Corpuscular Hemoglobin 30.7 pg (26-34); Mean Corpuscular Volume 92.6 fl (80-100); Mean Platelet Volume 9.7 fl (7.4-10.4); Monocytes Absolute Auto 0.4 K/mm3 (0.1-0.6); Monocytes Percent Auto 4.7 % (2.6-8.5); Neutrophils Absolute Auto 5.7 K/mm3 (1.3-6.7); Neutrophils Percent Auto 61.3 % (45.5-73.1); Platelet Count Result 204 k/mm3 (150-375); Red Blood Count 3.65 M/mm3 (4.6-6.20); Red Cell Distribution Width 14.3 % (11.5-14.5); White Blood Count 9.4 K/mm3 (4.5-10.0)
[2021-01-05] MEDS: ACETAMINOPHEN 325 MG TABLET 650 MG PO (06:01)
[2021-01-05 06:08] LABS: Anion Gap 5 mmol/L (8-16); Blood Urea Nitrogen 4 mg/dL (9-20); Calcium 8.9 mg/dL (8.4-10.2); Carbon Dioxide 29 mmol/L (22-30); Chloride 103 mmol/L (98-107); Estimated CRCL calculation 168 ml/min; Estimated Glomerular Filt Rate > 60; Glucose 102 mg/dL (65-110); Lipase 23 U/L (23-300); Potassium 3.7 mmol/L (3.4-5.0); Sodium 137 mmol/L (137-145)
[2021-01-05] MEDS: ENOXAPARIN 40 MG/0.4 ML SYRINGE SUB-Q (07:43)
[2021-01-05] MEDS: predniSONE 20 MG TABLET 40 MG PO (07:44)
[2021-01-05] MEDS: amLODIPine BESYLATE 5 MG TABLET 10 MG PO (07:44)
[2021-01-05] MEDS: PROPRANOLOL HCL 40 MG TABLET PO ×2 (07:44→21:08)
[2021-01-05] MEDS: BACLOFEN 10 MG TABLET 20 MG PO ×4 (07:45→21:08)
[2021-01-05] MEDS: LORATADINE 10 MG TABLET PO (07:45)
[2021-01-05] MEDS: PANTOPRAZOLE 40 MG TABLET PO ×2 (07:45→17:13)
[2021-01-05] MEDS: MULTIVITAMINS /C LUTEIN (CENTRUM SILVER) TABLET *BKC 1 TAB PO (07:45)
[2021-01-05] MEDS: SERTRALINE HCL 50 MG TABLET 150 MG PO (07:45)
[2021-01-05] MEDS: DIVALPROEX SODIUM DR 250 MG TABEC 1000 MG PO ×3 (07:46→17:13)
--- NOTE | 2021-01-05 09:01 | PM.IMPN ---
Progress Note: A&P Assessment and Plan (1) Bacteremia due to methicillin susceptible Staphylococcus aureus (MSSA): Code(s): R78.81 - Bacteremia; B95.61 - Methicillin susceptible Staphylococcus aureus infection as the cause of diseases classified elsewhere Status: Acute Assessment and Plan: Patient had sepsis last admission. He meet sepsis criteria this admission. He was bacteremic last admission with 1 blood culture growing methicillin sensitive Staph aureus and coag-negative staph. The 2nd blood culture is pending but is positive for Gram-positive cocci. Suspect pneumonia as the source. Repeat BCx pending. Continue vancomycin. Narrow antibiotic coverage 2nd blood culture bottle results are known and repeat blood cultures are negative. Check Echo. (2) Pneumonia: Qualifiers: Laterality: unspecified laterality Lung location: unspecified part of lung Pneumonia type: due to unspecified organism Qualified Code(s): J18.9 - Pneumonia, unspecified organism Code(s): J18.9 - Pneumonia, unspecified organism Status: Acute Assessment and Plan: Chest CTA on 01/01/2021 showing no pulmonary emboli but did show multifocal lung disease right worse than left consistent with pneumonia. Chest x-ray on readmission showing patchy airspace opacities in the mid and lower lung zones. He was started on Rocephin and azithromycin. Vancomycin has been added related to the positive blood culture. Albuterol nebs Added and patient currently on a 5 day course prednisone. Wheezing has resolved. Continue current antibiotics as we await final blood culture results. Will stop prednisone today given the improved lung exam and that he has positive BCx. Urine Legionella antigen pending. (3) Hypertension: Qualifiers: Hypertension type: unspecified Qualified Code(s): I10 - Essential (primary) hypertension Code(s): I10 - Essential (primary) hypertension Status: Acute Assessment and Plan: Patient's blood pressure was reviewed on 01/05 Blood pressure remains well controlled. Bradycardic with HR into the 40's at times probably related to sleep. Will continue current medications and continue to monitor. (4) PTSD (post-traumatic stress disorder): Code(s): F43.10 - Post-traumatic stress disorder, unspecified Status: Acute Assessment and Plan: Patient with PTSD and anxiety. Mood better bow that his pain is beter controlled. Continue divalproex, alprazolam and trazodone. (5) DVT prophylaxis: Code(s): Z29.9 - Encounter for prophylactic measures, unspecified Status: Acute Assessment and Plan: Danikacristin Subjective Date/time seen: 01/05/21 09:01 Interval history: 55yo male with chronic pain, HTN and PTSD who returns after signing himself out AMA. he was initially admitted on 01/01 for PNA and treated for CAP. He signed out AMA on 01/02. He was notified that his BCx had returned positive and he returned to the ED on 01/03 and was re-admitted. Pain better controlled. Shortness of breath is better. Slept well last night. Chest tightness has improved. He is up walking to the bathroom. patient did apologize to staff for his angry outburst yesterday. Exam Narrative: AF 97.5 130/86 48 16 93% ra Gen - NARD Chest - lungs clear to auscultation bilaterally. normal respiratory rate. CV - RRR S1/S2 Abd - Soft, NT/ND, Positive BS Ext - No pedal edema Psych - Normal mood and affect Skin - Warm and dry Objective Data Vital Signs Vital Signs: Vital Signs - 24 hr 01/04/21 13:34 01/04/21 13:35 01/04/21 13:42 Temperature Pulse Rate 51 L 52 L Respiratory Rate 16 16 Blood Pressure Pulse Oximetry 97 01/04/21 15:49 01/04/21 20:00 01/04/21 20:04 Temperature 96.5 F L Pulse Rate 58 L 57 L 58 L Respiratory Rate 18 18 18 Blood Pressure 114/72 Pulse Oximetry 99 98 01/04/21 20:05 01/04/21 20:14 01/04/21 21:00 T
[2021-01-05] MEDS: ALBUTEROL SULFATE NEB 2.5 MG/0.5 ML INH INHALATION ×2 (15:21→20:19)
[2021-01-05] MEDS: MORPHINE SULFATE (*CRX) 2 MG/ML INJ IV PUSH ×2 (18:30→22:20)
[2021-01-05] MEDS: traZODone HCL 50 MG TABLET 150 MG PO (22:20)
[2021-01-06] VITALS (11 sets, daily range): BP systolic 128–142; BP diastolic 59–81; PULSE 55–62; RESP 16–18; TEMP 36.2–36.3; O2SAT 95–98
[2021-01-06] MEDS: MORPHINE SULFATE (*CRX) 2 MG/ML INJ IV PUSH ×3 (02:09→10:09)
[2021-01-06] MEDS: ALBUTEROL SULFATE NEB 2.5 MG/0.5 ML INH INHALATION ×3 (02:13→14:11)
[2021-01-06] MEDS: ALPRAZolam (*CRX) 0.5 MG TABLET 1 MG PO ×2 (06:03→13:10)
[2021-01-06] MEDS: ENOXAPARIN 40 MG/0.4 ML SYRINGE SUB-Q (08:03)
[2021-01-06] MEDS: PANTOPRAZOLE 40 MG TABLET PO (08:04)
[2021-01-06] MEDS: amLODIPine BESYLATE 5 MG TABLET 10 MG PO (08:04)
[2021-01-06] MEDS: BACLOFEN 10 MG TABLET 20 MG PO ×2 (08:05→13:10)
[2021-01-06] MEDS: PROPRANOLOL HCL 40 MG TABLET PO (08:05)
[2021-01-06] MEDS: SERTRALINE HCL 50 MG TABLET 150 MG PO (08:05)
[2021-01-06] MEDS: MULTIVITAMINS /C LUTEIN (CENTRUM SILVER) TABLET *BKC 1 TAB PO (08:05)
[2021-01-06] MEDS: LORATADINE 10 MG TABLET PO (08:06)
[2021-01-06] MEDS: DIVALPROEX SODIUM DR 250 MG TABEC 1000 MG PO (08:07)
[2021-01-06 13:14] LABS: Vancomycin Trough 9.7 ug/mL (10.0-20.0)
--- NOTE | 2021-01-06 14:29 | PM.DS ---
DS: Admitting Diagnosis Discharge Date 01/06/21 Admitting Diagnosis Shortness of breath DS: Discharge Diagnosis Discharge Diagnosis (1) Bacteremia due to methicillin susceptible Staphylococcus aureus (MSSA): Code(s): R78.81 - Bacteremia; B95.61 - Methicillin susceptible Staphylococcus aureus infection as the cause of diseases classified elsewhere Status: Acute Assessment and Plan: Patient presented to the emergency room on 01/01/2021 for fever and chills and found to have sepsis with pneumonia. Patient was aggravated and ultimately signed out against medical advice the following day. He was bacteremic last admission and was called to return to the emergency room which he did so on 01/03/2021 and was subsequently admitted. BCx from 01/01 positive with 1 bottle growing methicillin sensitive Staph aureus and coag-negative staph. The 2nd blood culture is 2 species of coag-negative staph. Chest CTA from prior admission showing Multifocal lung disease, right worse than left, consistent with pneumonia. Suspect pneumonia as the source of the positive BCx. . Repeat BCx NGTD. Echo showing no vegetations. Treated with Rocephin, azithromycin and vancomycin until blood culture results were known. Discussed with ID. Plan for patient to be home with linezolid to complete a 2 week course from the last negative blood culture set on 01/04. Patient can afford the linezolid. (2) Pneumonia: Qualifiers: Laterality: unspecified laterality Lung location: unspecified part of lung Pneumonia type: due to unspecified organism Qualified Code(s): J18.9 - Pneumonia, unspecified organism Code(s): J18.9 - Pneumonia, unspecified organism Status: Acute Assessment and Plan: Chest CTA on 01/01/2021 showing no pulmonary emboli but did show multifocal lung disease right worse than left consistent with pneumonia. Chest x-ray on readmission showing patchy airspace opacities in the mid and lower lung zones. He was started on Rocephin and azithromycin. Vancomycin was added related to the positive blood culture. Albuterol nebs added. Wheezing has resolved. Repeat CXR as outpatient to ensure clearance. (3) Hypertension: Qualifiers: Hypertension type: unspecified Qualified Code(s): I10 - Essential (primary) hypertension Code(s): I10 - Essential (primary) hypertension Status: Acute Assessment and Plan: Patient's blood pressure was monitored closely and remained well controlled. Transient bradycardia with HR into the 40's at times early on but that has resolved. We continued home medications. (4) PTSD (post-traumatic stress disorder): Code(s): F43.10 - Post-traumatic stress disorder, unspecified Status: Acute Assessment and Plan: Patient with PTSD and anxiety. Mood was poor early in the hospital course but improved and stable. We continued divalproex, alprazolam and trazodone. DS: Summary Hospital Course Reason for hospitalization: 55yo male with chronic pain, HTN and PTSD who returns after signing himself out AMA. he was initially admitted on 01/01 for PNA and treated for CAP. He signed out AMA on 01/02. He was notified that his BCx had returned positive and he returned to the ED on 01/03 and was re-admitted. Please see H&P for details Hospital Course: Please see above for details of hospital course Status at Discharge Cognitive/behavioral status at discharge: stable Time Spent with Patient Time attestation: Total time spent providing and/or coordinating discharge services: 35 minutes Time spent: Greater than 30 minutes Exam Narrative: AF 97.1 128/80 56 16 98% ra Gen - NARD Chest - clear bilaterally. nml RR CV - RRR S1/S2 Abd - Soft, NT/ND, Positive BS Ext - No pedal edema Psych - Normal mood and affect Skin - Warm and dry DS: Data Data Completed and Pending Labs on day of discharge: Labs from last 24 hours 01/06/21
[2021-01-06] MEDS: ceFAZolin 2 GM/D5W 50 ML 2 GM/50 ML BAG IVPB (15:37)
--- NOTE | 2021-01-06 15:41 | PC.NURSE ---
On 01/06/21, the student, [ERIC], provided care and completed [facility] documentation on this patient. I have reviewed the student's documentation and agree with the findings.
[2021-01-07 15:00] LABS: Legionella pneumophila Ag Ur Not Detected (Not Detected)
--- NOTE | 2021-01-11 12:57 | PC.NURSE ---
BLood cx are negative. Urine Legionella is negative. Dr. Aguayo is aware.
== END 2021-01-06 16:10 | disposition home or self-care (01) | DRG 194 ==
LOC: ANHED 10:10 → ANH2MED 11:33
PROVIDERS: Internal Medicine; Admitting Provider Family Medicine; Emergency Provider Emergency Medicine; Visit Provider Internal Medicine
DX: J18.9 Pneumonia, unspecified organism (principal); R78.81 Bacteremia; B95.61 Methicillin susceptible Staphylococcus aureus infection as the cause of diseases classified elsewhere; I10 Essential (primary) hypertension; F43.10 Post-traumatic stress disorder, unspecified; G89.29 Other chronic pain; Z87.891 Personal history of nicotine dependence; Z79.899 Other long term (current) drug therapy
CPT/HCPCS: 36415; 71046; 80048; 80053; 80202; 83605; 83690; 85025; 85027; 87040; 87449; 93306; 94640; 96361; 96365; 96367; 96375; 99285; A9270; G0378; J0131; J0456; J0690; J0696; J1170; J1650; J1885; J2270; J3370; J7030; J7512

== ENCOUNTER 2021-02-11 12:33 | Outpatient (CLI) | payer BC, SELFPAY ==
--- NOTE | ~2021-02-11 | XR_ITS ---
XR chest 2V DATE: 02/11/2021 12:51 INDICATION: Pneumonia one month ago TECHNIQUE: PA and lateral views COMPARISON: 01/03/2021 2 view chest FINDINGS: There is interval resolution of the 01/03/2021 patchy airspace opacities in the mid and low er lung zones. The lungs are clear of active infiltrate or consolidation. No pleural effusion or pulm onary vascular congestion or pneumothorax. Mild pulmonary hyperinflation. Normal heart size. No hilar or mediastinal enlargement Status post anterior cervical/thoracic spine fusion. IMPRESSION: Resolution of right-sided infiltrate since 01/03/2021; no active cardiopulmonary disease Reviewed, dictated and finalized at location B. [employer] IMPRESSION: Resolution of right-sided infiltrate since 01/03/2021; no active ca rdiopulmonary disease
== END 2021-02-11 12:34 | disposition home or self-care (01) ==
LOC: ANHIMG 12:36
PROVIDERS: PCP Internal Medicine; Visit Provider Nurse Practitioner
DX: J18.9 Pneumonia, unspecified organism (principal); R91.8 Other nonspecific abnormal finding of lung field
CPT/HCPCS: 71046

== ENCOUNTER 2021-03-15 00:32 | Day surgery (SDC) | payer BC, SELFPAY ==
[2021-03-03 10:33] VITALS: BMI 26.6
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
[2021-03-15 12:21] VITALS: BP 159/98; PULSE 50; RESP 18; TEMP 36.4; O2SAT 99; BMI 27.9
[2021-03-15] MEDS: LACTATED RINGERS 1,000 ML 150 ML IV CONT (12:25)
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
[2021-03-15 13:02] VITALS: BP 89/45; PULSE 54; RESP 20; O2SAT 94
[2021-03-15 13:12] VITALS: BP 95/57; PULSE 54; RESP 19; O2SAT 99
[2021-03-15 13:22] VITALS: BP 123/41; PULSE 51; RESP 23; O2SAT 100
--- NOTE | 2021-03-15 14:01 | SUR.PHASEII ---
pt had delayed discharge. ride was still 30 minutes away.
== END 2021-03-15 13:45 | disposition home or self-care (01) ==
PROVIDERS: PCP Internal Medicine; Visit Provider Internal Medicine Gastroenterology
PROC: 0DJD8ZZ Inspection of Lower Intestinal Tract, Via Natural or Artificial Opening Endoscopic (ICD-10-PCS; CPT 45378; principal; 2021-03-15 13:45)
DX: Z12.11 Encounter for screening for malignant neoplasm of colon (principal); D12.4 Benign neoplasm of descending colon; F41.9 Anxiety disorder, unspecified; K21.9 Gastro-esophageal reflux disease without esophagitis; I10 Essential (primary) hypertension; F43.10 Post-traumatic stress disorder, unspecified; Z87.891 Personal history of nicotine dependence; F12.90 Cannabis use, unspecified, uncomplicated
CPT/HCPCS: 45385; 88305; J2704; J7120

== ENCOUNTER 2021-04-22 16:15 | Inpatient (IN) | payer BC, SELFPAY ==
[2021-04-22] VITALS (21 sets, daily range): BP systolic 145–193; BP diastolic 86–105; PULSE 51–75; RESP 12–26; TEMP 36.9–37.1; O2SAT 14–100; BMI 25.5
--- NOTE | ~2021-04-22 | CT_ITS ---
EXAMINATION: CT abdomen pelvis w con DATE: 04/22/2021 17:42 INDICATION: Epigastric pain. Elevated lipase. Rapid weight loss. TECHNIQUE: Computed tomography (CT) of the abdomen and pelvis was performed with 100 cc Omnipaque 350 intravenous contrast. The dose-length product was 528.76 mGy-cm. Automated exposure control and iter ative reconstruction technique were employed. COMPARISON: CT dated 07/26/2016. FINDINGS: Lung bases unremarkable. Heart size upper normal. There is hiatal hernia. There are changes of gastric bypass surgery. Status post cholecystectomy with expected prominence of the bile ducts. T here is mild edema surrounding the pancreas, consistent with pancreatitis. No evidence for pseudocyst or abscess formation. The spleen, right adrenal gland and kidneys are unremarkable. There is a 2.7 x 1.4 cm left adrenal nodule, most likely benign adenoma. Nonobstructive bowel gas pattern. No signifi cant vascular abnormality. No abnormal pelvic masses or fluid collections. Prostate gland is enlarged . No free air. Mild lumbar spondylosis. Grade 1 spondylolisthesis at L5-S1 secondary to bilateral spo ndylolysis. IMPRESSION: 1. Acute uncomplicated pancreatitis. Reviewed, dictated and finalized at location [facility]. [facility]
[2021-04-22 16:41] LABS: Basophils Percent Auto 0.3 % (0.2-1.2); Eosinophils Absolute Auto 0.3 K/mm3 (0-0.3); Eosinophils Percent Auto 2.8 % (0-4.4); Hematocrit 45.7 % (42.0-52.0); Hemoglobin 15.4 g/dL (14.0-18.0); Immature Granulocyte Absolute 0.04 K/mm3 (0.00-0.031); Immature Granulocyte Percent A 0.4 % (0-0.5); Lymphocytes Absolute Auto 1.84 K/mm3 (0.9-3.2); Lymphocytes Percent Auto 18.8 % (18.3-44.2); Mean Corpuscular HGB Conc 33.7 g/dl (32-36); Mean Corpuscular Volume 94.8 fl (80-100); Mean Platelet Volume 9.2 fl (7.4-10.4); Monocytes Absolute Auto 0.7 K/mm3 (0.1-0.6); Monocytes Percent Auto 7.1 % (2.6-8.5); Neutrophils Absolute Auto 6.9 K/mm3 (1.3-6.7); Neutrophils Percent Auto 70.6 % (45.5-73.1); Platelet Count Result 277 k/mm3 (150-375); Red Blood Count 4.82 M/mm3 (4.6-6.20); Red Cell Distribution Width 14.4 % (11.5-14.5); White Blood Count 9.8 K/mm3 (4.5-10.0)
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
[2021-04-22] MEDS: HYDROmorphone HCL INJ (*CRX) 1 MG/ML SYR 0.5 MG IV PUSH (17:08)
[2021-04-22] MEDS: ONDANSETRON INJ 4 MG/2 ML VIAL IV PUSH (17:10)
[2021-04-22] MEDS: SODIUM CHLORIDE 0.9% IV 1,000 ML 999 ML IV CONT (17:11)
[2021-04-22 17:12] LABS: Alanine Aminotransferase 15 U/L (4-50); Albumin Level 3.7 g/dL (3.5-5.1); Alkaline Phosphatase 110 U/L (38-126); Anion Gap 8 mmol/L (8-16); Aspartate Amino Transferase 23 U/L (17-59); Bilirubin,Total 0.9 mg/dL (0.2-1.3); Blood Urea Nitrogen 15 mg/dL (9-20); Calcium 8.9 mg/dL (8.4-10.2); Carbon Dioxide 27 mmol/L (22-30); Chloride 102 mmol/L (98-107); Estimated CRCL calculation 149 ml/min; Estimated Glomerular Filt Rate > 60; Glucose 114 mg/dL (65-110); Lipase 593 U/L (23-300); Potassium 3.2 mmol/L (3.4-5.0); Sodium 137 mmol/L (137-145)
--- NOTE | 2021-04-22 17:26 | PC.NURSE ---
Attempted to straight cath pt and he declined. He will like try voiding after CT scan.
--- NOTE | 2021-04-22 18:00 | PC.NURSE ---
Pt voided, urine specimen collected and sent to lab
[2021-04-22 18:06] LABS: Add Urine Microscopic? YES; Appearance Urine Clear (Clear); Bilirubin Urine 1+ (Negative); Blood Urine Negative (Negative); Color Urine Amber (Yellow); Glucose Urine UA Negative (Negative); Ketones Urine 1+ mg/dL (Negative); Leukocyte Esterase Ur Negative LEU/UL (Negative); Mucus Urine Heavy /lpf; Nitrate Urine Negative (Negative); Protein Urine 1+ mg/dL (Negative); RBC Urine 0-2 /hpf (0-2); Squamous Epithelial Cell Urine Rare /hpf (Few); WBC Urine 0-3 /hpf
[2021-04-22] MEDS: HYDROmorphone HCL INJ (*CRX) 1 MG/ML SYR IV PUSH ×2 (18:10→21:13)
[2021-04-22 18:36] LABS: Specific Grav Ur > 1.060 (1.001-1.035)
--- NOTE | 2021-04-22 19:06 | PC.NURSE ---
2nd liter if IVF infusing. Patient is being admitted for further eval and treatment.
[2021-04-22] MEDS: SODIUM CHLORIDE 0.9% IV 1,000 ML 150 ML IV CONT (19:09)
--- NOTE | 2021-04-22 20:04 | ADMGEN ---
This patient, Eleuterio Rico, was admitted to Medical Room 342-01. Patient/family oriented to hospital policies and general routines including ID bracelet, bed and alarms, visiting hours, pain management, procedures, bathroom and other care routines, personal items, smoking policy, room service/diet, and visiting hours. Information on how to activate the Rapid Response Team has been discussed. Patient/Family are encouraged to report perceived risks to care and to ask questions if they do not understand what they are told or what they should do.
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
[2021-04-22] MEDS: BACLOFEN 10 MG TABLET 20 MG PO (23:55)
[2021-04-22] MEDS: ALPRAZolam (*CRX) 0.5 MG TABLET 1 MG PO (23:56)
[2021-04-22] MEDS: PANTOPRAZOLE SODIUM IV 40 MG VIAL IV PUSH (23:56)
[2021-04-22] MEDS: traZODone HCL 50 MG TABLET 150 MG PO (23:56)
[2021-04-23] VITALS (16 sets, daily range): BP systolic 148–189; BP diastolic 89–107; PULSE 47–56; RESP 12–18; TEMP 35.8–36.6; O2SAT 97–100; BMI 26.4
--- NOTE | 2021-04-23 00:04 | PHAR ---
PHARMACY VERIFIED HOME MEDS: *USE FROM HOME* Cetirizine 10 mg tablet TAKE ONE TABLET BY MOUTH ONCE DAILY *USE FROM HOME* Propranolol 80 mg capsule XL 24 hr TAKE ONE CAPSULE BY MOUTH ONCE DAILY
[2021-04-23] MEDS: HYDROmorphone HCL INJ (*CRX) 1 MG/ML SYR IV PUSH ×6 (01:32→21:04)
[2021-04-23] MEDS: SODIUM CHLORIDE 0.9% IV 1,000 ML 150 ML IV CONT ×3 (02:32→20:19)
[2021-04-23 05:18] LABS: Basophils Percent Auto 0.2 % (0.2-1.2); Eosinophils Absolute Auto 0.4 K/mm3 (0-0.3); Eosinophils Percent Auto 4.1 % (0-4.4); Hematocrit 40.8 % (42.0-52.0); Hemoglobin 13.1 g/dL (14.0-18.0); Immature Granulocyte Absolute 0.04 K/mm3 (0.00-0.031); Immature Granulocyte Percent A 0.5 % (0-0.5); Lymphocytes Absolute Auto 2.27 K/mm3 (0.9-3.2); Lymphocytes Percent Auto 26.7 % (18.3-44.2); Mean Corpuscular HGB Conc 32.1 g/dl (32-36); Mean Corpuscular Hemoglobin 31.8 pg (26-34); Mean Platelet Volume 9.3 fl (7.4-10.4); Monocytes Absolute Auto 0.5 K/mm3 (0.1-0.6); Monocytes Percent Auto 6.2 % (2.6-8.5); Neutrophils Absolute Auto 5.3 K/mm3 (1.3-6.7); Neutrophils Percent Auto 62.3 % (45.5-73.1); Platelet Count Result 226 k/mm3 (150-375); Red Blood Count 4.12 M/mm3 (4.6-6.20); Red Cell Distribution Width 14.5 % (11.5-14.5); White Blood Count 8.5 K/mm3 (4.5-10.0)
[2021-04-23 05:36] LABS: Alanine Aminotransferase 12 U/L (4-50); Alkaline Phosphatase 81 U/L (38-126); Anion Gap 6 mmol/L (8-16); Aspartate Amino Transferase 18 U/L (17-59); Bilirubin,Total 0.5 mg/dL (0.2-1.3); Blood Urea Nitrogen 11 mg/dL (9-20); Calcium 7.8 mg/dL (8.4-10.2); Carbon Dioxide 28 mmol/L (22-30); Chloride 107 mmol/L (98-107); Estimated CRCL calculation 181 ml/min; Estimated Glomerular Filt Rate > 60; Glucose 80 mg/dL (65-110); Lipase 500 U/L (23-300); Magnesium 1.7 mg/dL (1.6-2.3); Potassium 3.1 mmol/L (3.4-5.0); Sodium 141 mmol/L (137-145); Triglycerides 91 mg/dL (<150)
[2021-04-23] MEDS: ALPRAZolam (*CRX) 0.5 MG TABLET 1 MG PO ×2 (06:16→21:55)
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
[2021-04-23] MEDS: SERTRALINE HCL 50 MG TABLET 150 MG PO (08:34)
[2021-04-23] MEDS: MULTIVITAMINS /C LUTEIN (CENTRUM SILVER) TABLET *BKC 1 TAB PO (08:34)
[2021-04-23] MEDS: BACLOFEN 10 MG TABLET 20 MG PO (08:34)
[2021-04-23] MEDS: ONDANSETRON INJ 4 MG/2 ML VIAL IV PUSH (09:23)
[2021-04-23] MEDS: PANTOPRAZOLE SODIUM IV 40 MG VIAL IV PUSH (10:00)
--- NOTE | 2021-04-23 10:00 | P.PNIM_ITS ---
Progress Note: A&P Assessment and Plan (1) Acute pancreatitis: Qualifiers: Acute pancreatitis complication: no infection or necrosis Pancreatitis type: unspecified pancreatitis type Qualified Code(s): K85.90 - Acute pancreatitis without necrosis or infection, unspecified Code(s): K85.90 - Acute pancreatitis without necrosis or infection, unspecified Status: Acute Assessment and Plan: * Abd/Pel CT: Acute uncomplicated pancreatitis. * Strict NPO * IV fluids: 150ml/hrs * Lipase upon admission 593, and 500 today * Antiemetics Zofran 4mg IV * Analgesics Dilaudid 1mg IV Q4hr PRN, increase to 1mg IV Q3hr PRN * Dr. Wallis is consulted, thank you for your help * Change PO medications to IV for now * Trend symptoms * Trend Lipase * EGD scheduled for today (2) Gastroesophageal reflux disease: Code(s): K21.9 - Gastro-esophageal reflux disease without esophagitis Status: Acute Assessment and Plan: * Reflux symptoms similar to when he has had ulcers * Dr. Wallis consulted thank you for your help * Continue pantoprazole 40 mg IV b.i.d.. (3) Dehydration: Code(s): E86.0 - Dehydration Status: Acute Assessment and Plan: * Secondary to poor oral intake the past 5 days * He is also exhibiting nausea and vomiting * Could all be related * Continue IV fluid rehydration as above. (4) Chronic pain syndrome: Code(s): G89.4 - Chronic pain syndrome Status: Acute Assessment and Plan: * Continue baclofen as prescribed. (5) Hypertension: Qualifiers: Hypertension type: unspecified Qualified Code(s): I10 - Essential (primary) hypertension Code(s): I10 - Essential (primary) hypertension Status: Acute Assessment and Plan: * BP 164/91 * hydralazine PRN with parameters * trend bp * Propranolol on hold for NPO status, restart as appropiate * Adjust therapy as indicated Time Spent With Patient Time with patient: Greater than 35 minutes Subjective Date/time seen: 04/23/21 10:00 Interval history: Date/Time: 04/22/21 19:45 Narrative: This is a 55-year-old male with history of GERD, peptic ulcers, pancreatitis, hypertension, and chronic pain syndrome who presented to the emergency department for evaluation of abdominal pain. He endorses a constant, dull pain in the epigastrium radiating through to the back which will intermittently becomes severe and sharp. The symptoms are similar to when he had a bleeding ulcer years ago. Despite taking Nexium 40 mg twice daily he has felt that his acid reflux has been worse as well. Additionally he has had pretty persistent nausea and dry heaves and he has not been able to hold down any food in 5 days. He also feels dehydrated and that his urine output has dropped off these past couple of days. His lipase was mildly elevated at [address] of the abdomen and pelvis showed acute uncomplicated pancreatitis. He had a history of pancreatitis several years ago attributed to a medication that he cannot remember the name of at this time. He does not drink alcohol in significant quantities and to his knowledge he has no known history of hypertriglyceridemia. He denies hematemesis, melena, and hematochezia. Currently he is feeling much better after receiving hydromorphone and ondansetron. Date/Time 04/23/21 1000 patient seems very irritated and frustrated today. Patient can not tell me over and over than that nobody has told him was going on.
--- NOTE | 2021-04-23 10:00 | PM.IMPN ---
Progress Note: A&P Assessment and Plan (1) Acute pancreatitis: Qualifiers: Acute pancreatitis complication: no infection or necrosis Pancreatitis type: unspecified pancreatitis type Qualified Code(s): K85.90 - Acute pancreatitis without necrosis or infection, unspecified Code(s): K85.90 - Acute pancreatitis without necrosis or infection, unspecified Status: Acute Assessment and Plan: Abd/Pel CT: Acute uncomplicated pancreatitis. Strict NPO IV fluids: 150ml/hrs Lipase upon admission 593, and 500 today Antiemetics Zofran 4mg IV Analgesics Dilaudid 1mg IV Q4hr PRN, increase to 1mg IV Q3hr PRN Dr. Wallis is consulted, thank you for your help Change PO medications to IV for now Trend symptoms Trend Lipase EGD scheduled for today (2) Gastroesophageal reflux disease: Code(s): K21.9 - Gastro-esophageal reflux disease without esophagitis Status: Acute Assessment and Plan: Reflux symptoms similar to when he has had ulcers Dr. Wallis consulted thank you for your help Continue pantoprazole 40 mg IV b.i.d.. (3) Dehydration: Code(s): E86.0 - Dehydration Status: Acute Assessment and Plan: Secondary to poor oral intake the past 5 days He is also exhibiting nausea and vomiting Could all be related Continue IV fluid rehydration as above. (4) Chronic pain syndrome: Code(s): G89.4 - Chronic pain syndrome Status: Acute Assessment and Plan: Continue baclofen as prescribed. (5) Hypertension: Qualifiers: Hypertension type: unspecified Qualified Code(s): I10 - Essential (primary) hypertension Code(s): I10 - Essential (primary) hypertension Status: Acute Assessment and Plan: BP 164/91 hydralazine PRN with parameters trend bp Propranolol on hold for NPO status, restart as appropiate Adjust therapy as indicated Time Spent With Patient Time with patient: Greater than 35 minutes Subjective Date/time seen: 04/23/21 10:00 Interval history: Date/Time: 04/22/21 19:45 Narrative: This is a 55-year-old male with history of GERD, peptic ulcers, pancreatitis, hypertension, and chronic pain syndrome who presented to the emergency department for evaluation of abdominal pain. He endorses a constant, dull pain in the epigastrium radiating through to the back which will intermittently becomes severe and sharp. The symptoms are similar to when he had a bleeding ulcer years ago. Despite taking Nexium 40 mg twice daily he has felt that his acid reflux has been worse as well. Additionally he has had pretty persistent nausea and dry heaves and he has not been able to hold down any food in 5 days. He also feels dehydrated and that his urine output has dropped off these past couple of days. His lipase was mildly elevated at [address] of the abdomen and pelvis showed acute uncomplicated pancreatitis. He had a history of pancreatitis several years ago attributed to a medication that he cannot remember the name of at this time. He does not drink alcohol in significant quantities and to his knowledge he has no known history of hypertriglyceridemia. He denies hematemesis, melena, and hematochezia. Currently he is feeling much better after receiving hydromorphone and ondansetron. Date/Time 04/23/21 1000 patient seems very irritated and frustrated today. Patient can not tell me over and over than that nobody has told him was going on. He is also very upset because he does not feel like he is getting his medications. I did let him know that he is getting medications it was converted to IV incentive by mouth. He looked very nauseous. He also stated that he is having epigastric pain a 9/10. Lipase is 500. He seems very anxious. he denied chest pain, shortness of breath, dizziness, headache. Review of Systems Review of Systems: All systems reviewed & are unremarkable except as not
[2021-04-23] MEDS: LACTATED RINGERS 1,000 ML 150 ML IV CONT (12:20)
--- NOTE | 2021-04-23 12:29 | WPDANESEPPF ---
Anes - Initial Pre Proc Eval Procedure: Operation Date: 04/23/21 13:15 Proposed Procedures p Esophagogastroduodenoscopy - John Wallis MD Date/Time: 04/23/21 12:29 Surgeon: Mike Davila MD Pre Op Diagnosis: Acute Pancreatitis Patient Data Age: 55 Gender: M Height: 1.83 m Weight: 88.4 kg Last Vital Signs Temp 35.9 C L 04/23/21 12:10 Pulse 53 L 04/23/21 12:10 Resp 18 04/23/21 12:10 BP 171/89 H 04/23/21 12:10 Pulse Ox 99 04/23/21 12:10 Allergies Allergy/AdvReac Type Severity Reaction Status Date / Time linezolid Allergy Intermediate Rash Verified 04/23/21 12:13 adhesive AdvReac Rash Verified 04/23/21 12:13 Home Medications Medication Instructions Recorded Confirmed Type baclofen 20 mg PO QID 12/21/20 04/22/21 History cetirizine 10 mg PO DAILY 12/21/20 04/22/21 History trazodone 150 mg PO HS 12/21/20 04/22/21 History gjxrxdzjufwd-hefe-omefq acid 1 tablet PO DAILY 01/02/21 04/22/21 History esomeprazole magnesium 40 mg 40 mg PO BID #180 cap 01/18/21 04/22/21 Rx capsule,delayed release propranolol 80 mg capsule,24 80 mg PO DAILY #0 cap 03/02/21 04/22/21 Rx hr,extended release alprazolam 1 mg PO TID PRN 03/03/21 04/22/21 History sertraline 100 mg tablet 150 mg PO DAILY #135 tablet 03/19/21 04/22/21 Rx divalproex 500 mg tablet,delayed See Rx Instructions PO ONCE PRN 04/08/21 04/22/21 Rx release #180 tablet Laboratory Tests 04/22/21 04/22/21 04/22/21 16:34 16:56 17:53 WBC 9.8 K/mm3 K/mm3 (4.5-10.0) RBC 4.82 M/mm3 M/mm3 (4.6-6.20) Hgb 15.4 g/dL D g/dL (14.0-18.0) Hct 45.7 % % (42.0-52.0) MCV 94.8 fl fl (80-100) MCH 32.0 pg pg (26-34) MCHC 33.7 g/dl g/dl (32-36) RDW 14.4 % % (11.5-14.5) Plt Count 277 k/mm3 k/mm3 (150-375) MPV 9.2 fl fl (7.4-10.4) Immature Gran % (Auto) 0.4 % % (0-0.5) Neut % (Auto) 70.6 % % (45.5-73.1) Lymph % (Auto) 18.8 % % (18.3-44.2) [place] % (Auto) 7.1 % % (2.6-8.5) Eos % (Auto) 2.8 % % (0-4.4) Baso % (Auto) 0.3 % % (0.2-1.2) Lymph # (Auto) 1.84 K/mm3 K/mm3 (0.9-3.2) [place] # (Auto) 0.7 K/mm3 H K/mm3 (0.1-0.6) Eos # (Auto) 0.3 K/mm3 K/mm3 (0-0.3) Baso # (Auto) 0.0 K/mm3 K/mm3 (0.0-0.1) Abs Immat Gran (auto) 0.04 K/mm3 H K/mm3 (0.00-0.031) Absolute Neuts (auto) 6.9 K/mm3 H K/mm3 (1.3-6.7) Absolute Nucleated RBC 0.0 K/mm3 K/mm3 (0.0-0.012) Nucleated RBC % 0.0 % % (0.0-0.2) Sodium 137 mmol/L mmol/L (137-145) Potassium 3.2 mmol/L L mmol/L (3.4-5.0) Chloride 102 mmol/L mmol/L (98-107) Carbon Dioxide 27 mmol/L mmol/L (22-30) Anion Gap 8 mmol/L mmol/L (8-16) BUN 15 mg/dL D mg/dL (9-20) Creatinine 0.50 mg/dL L mg/dL (0.7-1.3) Estim Creat Clear Calc 149 ml/min ml/min Estimated GFR > 60 (59 - ) Glucose 114 mg/dL H mg/dL (65-110) Calcium 8.9 mg/dL mg/dL (8.4-10.2) Magnesium Total Bilirubin 0.9 mg/dL mg/dL (0.2-1.3) AST 23 U/L U/L (17-59) ALT 15 U/L U/L (4-50) Alkaline Phosphatase 110 U/L U/L (38-126) Total Protein 7.0 g/dL g/dL (6.3-8.2) Albumin 3.7 g/dL g/dL (3.5-5.1) Triglycerides Lipase 593 U/L H U/L (23-300) Urine Color [place] (Yellow) Urine Appearance Clear (Clear) Urine pH 6.0 (5.0-9.0) Ur Specific [place] > 1.060 H (1.001-1.035) Urine Protein 1+ mg/dL H mg/dL (Negative) Urine Glucose (UA) Negative mg/dL mg/dL (Negative) Urine Ketones 1+ mg/dL H mg/dL (Negative) Ur Blood (Man) Negative (Negative) Urine Nitrate Negative (Negative)
[2021-04-23] MEDS: LORazepam INJ (*CRX) 2 MG/ML VIAL 0.5 MG IV PUSH (14:19)
[2021-04-23] MEDS: hydrALAZINE HCL 20 MG/ML VIAL 10 MG IV PUSH (14:31)
[2021-04-23] MEDS: SUCRALFATE 1 GM TABLET PO ×2 (18:05→20:19)
[2021-04-24] MEDS: HYDROmorphone HCL INJ (*CRX) 1 MG/ML SYR IV PUSH ×4 (00:09→11:30)
[2021-04-24] MEDS: traZODone HCL 50 MG TABLET 150 MG PO (00:10)
[2021-04-24] MEDS: SODIUM CHLORIDE 0.9% IV 1,000 ML 150 ML IV CONT (04:11)
[2021-04-24 05:32] LABS: Basophils Percent Auto 0.1 % (0.2-1.2); Eosinophils Absolute Auto 0.3 K/mm3 (0-0.3); Eosinophils Percent Auto 4.1 % (0-4.4); Hematocrit 38.6 % (42.0-52.0); Hemoglobin 12.6 g/dL (14.0-18.0); Immature Granulocyte Absolute 0.02 K/mm3 (0.00-0.031); Immature Granulocyte Percent A 0.3 % (0-0.5); Lymphocytes Absolute Auto 1.92 K/mm3 (0.9-3.2); Lymphocytes Percent Auto 26.3 % (18.3-44.2); Mean Corpuscular HGB Conc 32.6 g/dl (32-36); Mean Corpuscular Hemoglobin 32.1 pg (26-34); Mean Corpuscular Volume 98.2 fl (80-100); Mean Platelet Volume 9.5 fl (7.4-10.4); Monocytes Absolute Auto 0.5 K/mm3 (0.1-0.6); Monocytes Percent Auto 6.4 % (2.6-8.5); Neutrophils Absolute Auto 4.6 K/mm3 (1.3-6.7); Neutrophils Percent Auto 62.8 % (45.5-73.1); Platelet Count Result 213 k/mm3 (150-375); Red Blood Count 3.93 M/mm3 (4.6-6.20); Red Cell Distribution Width 14.2 % (11.5-14.5); White Blood Count 7.3 K/mm3 (4.5-10.0)
[2021-04-24 05:38] LABS: Alanine Aminotransferase 11 U/L (4-50); Albumin Level 2.8 g/dL (3.5-5.1); Alkaline Phosphatase 75 U/L (38-126); Anion Gap 5 mmol/L (8-16); Aspartate Amino Transferase 17 U/L (17-59); Bilirubin,Total 0.5 mg/dL (0.2-1.3); Blood Urea Nitrogen 5 mg/dL (9-20); Calcium 7.7 mg/dL (8.4-10.2); Carbon Dioxide 25 mmol/L (22-30); Chloride 107 mmol/L (98-107); Estimated CRCL calculation 181 ml/min; Estimated Glomerular Filt Rate > 60; Glucose 96 mg/dL (65-110); Lipase 305 U/L (23-300); Magnesium 1.6 mg/dL (1.6-2.3); Sodium 137 mmol/L (137-145)
[2021-04-24 06:00] VITALS: BP 124/90; PULSE 50; RESP 16; TEMP 36.7; O2SAT 100
[2021-04-24 07:56] VITALS: PULSE 61; RESP 16; O2SAT 100
[2021-04-24] MEDS: SUCRALFATE 1 GM TABLET PO ×2 (08:00→11:30)
[2021-04-24 08:16] VITALS: TEMP 36.7
[2021-04-24] MEDS: BACLOFEN 10 MG TABLET 20 MG PO ×3 (09:05→12:49)
[2021-04-24] MEDS: SERTRALINE HCL 50 MG TABLET 150 MG PO (09:10)
[2021-04-24] MEDS: MULTIVITAMINS /C LUTEIN (CENTRUM SILVER) TABLET *BKC 1 TAB PO (09:11)
[2021-04-24] MEDS: ALPRAZolam (*CRX) 0.5 MG TABLET 1 MG PO (09:18)
[2021-04-24 12:13] VITALS: TEMP 36.7
--- NOTE | 2021-04-24 12:53 | P.DS_ITS ---
DS: Admitting Diagnosis Discharge Date 04/24/2021 Admitting Diagnosis Acute pancreatitis hypertension GERD Chronic pain syndrome DS: Discharge Diagnosis Discharge Diagnosis (1) Acute pancreatitis: Qualifiers: Acute pancreatitis complication: no infection or necrosis Pancreatitis type: unspecified pancreatitis type Qualified Code(s): K85.90 - Acute pancreatitis without necrosis or infection, unspecified Code(s): K85.90 - Acute pancreatitis without necrosis or infection, unspecified Status: Acute Assessment and Plan: * Abd/Pel CT: Acute uncomplicated pancreatitis. * Strict NPO * IV fluids: 150ml/hrs * Lipase upon admission 593, and 500 today * Antiemetics Zofran 4mg IV * Analgesics Dilaudid 1mg IV Q4hr PRN, increase to 1mg IV Q3hr PRN * Dr. Wallis is consulted, thank you for your help * Change PO medications to IV for now * Trend symptoms * Trend Lipase * EGD scheduled for today (2) Gastroesophageal reflux disease: Code(s): K21.9 - Gastro-esophageal reflux disease without esophagitis Status: Acute Assessment and Plan: * Reflux symptoms similar to when he has had ulcers * Dr. Wallis consulted thank you for your help * Continue pantoprazole 40 mg IV b.i.d.. (3) Dehydration: Code(s): E86.0 - Dehydration Status: Acute Assessment and Plan: * Secondary to poor oral intake the past 5 days * He is also exhibiting nausea and vomiting * Could all be related * Continue IV fluid rehydration as above. (4) Chronic pain syndrome: Code(s): G89.4 - Chronic pain syndrome Status: Acute Assessment and Plan: * Continue baclofen as prescribed. (5) Hypertension: Qualifiers: Hypertension type: unspecified Qualified Code(s): I10 - Essential (primary) hypertension Code(s): I10 - Essential (primary) hypertension Status: Acute Assessment and Plan: * BP 164/91 * hydralazine PRN with parameters * trend bp * Propranolol on hold for NPO status, restart as appropiate * Adjust therapy as indicated DS: Summary Hospital Course Reason for hospitalization: Acute pancreatitis Hospital Course: Patient is a 55-year-old male with a past medical history of GERD, peptic ulcer, pancreatitis, hypertension and chronic pain syndrome. Who presented to [facility] Emergency Department for acute abdominal pain. Patient reports that the pain began a few days ago prior to admission. He states the pain is constant, dull pain in his epigastric area radiating to his back with intermittent episodes that are brief sharp and severe pain. Patient reports that this symptom is similar to when he had a bleeding ulcer years ago which was managed with taking Nexium 40 mg b.i.d.. Patient also endorses persistent nausea and dry heaves and decreased appetite over the last week. He reports weight loss within the past year and states that he is dehydrated has decreased urine output the past several days. His lipase initially was mildly elevated to [address] of the abdomen and pelvis did show an acute uncomplicated pancreatitis. Patient does have a history of pancreatitis several years ago in attributed to medication at that time. Patient denies alcohol use. He endorses tobacco use intermittently with cigars and daily marijuana usage. He denies any hematemesis, melena and hematochezia. Patient received a dose of Zofran and Dilaudid in the emergency department and was called fo
--- NOTE | 2021-04-24 12:53 | PM.DS ---
DS: Admitting Diagnosis Discharge Date 04/24/2021 Admitting Diagnosis Acute pancreatitis hypertension GERD Chronic pain syndrome DS: Discharge Diagnosis Discharge Diagnosis (1) Acute pancreatitis: Qualifiers: Acute pancreatitis complication: no infection or necrosis Pancreatitis type: unspecified pancreatitis type Qualified Code(s): K85.90 - Acute pancreatitis without necrosis or infection, unspecified Code(s): K85.90 - Acute pancreatitis without necrosis or infection, unspecified Status: Acute Assessment and Plan: Abd/Pel CT: Acute uncomplicated pancreatitis. Strict NPO IV fluids: 150ml/hrs Lipase upon admission 593, and 500 today Antiemetics Zofran 4mg IV Analgesics Dilaudid 1mg IV Q4hr PRN, increase to 1mg IV Q3hr PRN Dr. Wallis is consulted, thank you for your help Change PO medications to IV for now Trend symptoms Trend Lipase EGD scheduled for today (2) Gastroesophageal reflux disease: Code(s): K21.9 - Gastro-esophageal reflux disease without esophagitis Status: Acute Assessment and Plan: Reflux symptoms similar to when he has had ulcers Dr. Wallis consulted thank you for your help Continue pantoprazole 40 mg IV b.i.d.. (3) Dehydration: Code(s): E86.0 - Dehydration Status: Acute Assessment and Plan: Secondary to poor oral intake the past 5 days He is also exhibiting nausea and vomiting Could all be related Continue IV fluid rehydration as above. (4) Chronic pain syndrome: Code(s): G89.4 - Chronic pain syndrome Status: Acute Assessment and Plan: Continue baclofen as prescribed. (5) Hypertension: Qualifiers: Hypertension type: unspecified Qualified Code(s): I10 - Essential (primary) hypertension Code(s): I10 - Essential (primary) hypertension Status: Acute Assessment and Plan: BP 164/91 hydralazine PRN with parameters trend bp Propranolol on hold for NPO status, restart as appropiate Adjust therapy as indicated DS: Summary Hospital Course Reason for hospitalization: Acute pancreatitis Hospital Course: Patient is a 55-year-old male with a past medical history of GERD, peptic ulcer, pancreatitis, hypertension and chronic pain syndrome. Who presented to [facility] Emergency Department for acute abdominal pain. Patient reports that the pain began a few days ago prior to admission. He states the pain is constant, dull pain in his epigastric area radiating to his back with intermittent episodes that are brief sharp and severe pain. Patient reports that this symptom is similar to when he had a bleeding ulcer years ago which was managed with taking Nexium 40 mg b.i.d.. Patient also endorses persistent nausea and dry heaves and decreased appetite over the last week. He reports weight loss within the past year and states that he is dehydrated has decreased urine output the past several days. His lipase initially was mildly elevated to [address] of the abdomen and pelvis did show an acute uncomplicated pancreatitis. Patient does have a history of pancreatitis several years ago in attributed to medication at that time. Patient denies alcohol use. He endorses tobacco use intermittently with cigars and daily marijuana usage. He denies any hematemesis, melena and hematochezia. Patient received a dose of Zofran and Dilaudid in the emergency department and was called for admission to the floor. During the patient's hospitalization GI was consulted for further evaluation. Gastroenterology was able to perform a EGD were they did not find erosive esophagitis, no ulcers and previous gastric surgery. Chart was reviewed the patient had a colonoscopy where 1 polyp was found years ago. He was encouraged to follow up with a colonoscopy. GI also suggested that the patient should stop taking pantoprazole as this is not likely re
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
[2021-04-24] MEDS: POTASSIUM CHLORIDE 20 MEQ TABLET 40 MEQ PO (15:43)
[2021-04-24 15:50] VITALS: PULSE 52; RESP 14; O2SAT 98
== END 2021-04-24 16:05 | disposition home or self-care (01) | DRG 440 ==
LOC: ANHED 18:20 → ANH3MED 19:13
PROVIDERS: Internal Medicine Gastroenterology; Nurse Practitioner; Admitting Provider Family Medicine; Emergency Provider General Practice; PCP Internal Medicine; Visit Provider Nurse Practitioner Family
PROC: 0DJ08ZZ Inspection of Upper Intestinal Tract, Via Natural or Artificial Opening Endoscopic (ICD-10-PCS; CPT 43235; principal; 2021-04-23 13:15)
DX: K85.90 Acute pancreatitis without necrosis or infection, unspecified (principal); K21.9 Gastro-esophageal reflux disease without esophagitis; K31.89 Other diseases of stomach and duodenum; E86.0 Dehydration; I10 Essential (primary) hypertension; G89.4 Chronic pain syndrome; F43.10 Post-traumatic stress disorder, unspecified; Z87.11 Personal history of peptic ulcer disease; Z98.1 Arthrodesis status; Z87.891 Personal history of nicotine dependence
CPT/HCPCS: 36415; 74177; 80053; 81001; 83690; 83735; 84478; 85025; 88305; 96361; 96374; 96375; 96376; 99285; A9270; C9113; G0378; J0131; J0360; J1170; J2060; J2405; J2704; J7030; J7120; Q9967

== ENCOUNTER 2021-05-27 05:39 | Inpatient (IN) | payer BC, SELFPAY ==
[2021-05-27] VITALS (21 sets, daily range): BP systolic 135–197; BP diastolic 91–124; PULSE 51–64; RESP 11–20; TEMP 36.2–36.7; O2SAT 92–100; BMI 25.1
--- NOTE | ~2021-05-27 | US_ITS ---
EXAMINATION: US abdomen limited EXAM DATE: 05/30/2021 09:34 INDICATION: Elevated liver enzymes TECHNIQUE: Multiple grayscale and Doppler images of the abdomen right upper quadrant were obtained (maria de jesus y a technologist who performed the scan) and subsequently reviewed. There is no prior study for jimbo velarde. FINDINGS: The pancreatic head and body are normal in appearance. The pancreatic tail is not visualized. The l iver has normal echogenicity and contour. Echogenic portal triads, nonspecific sonographic appearance . There are no focal liver lesions identified. There is no evidence of intrahepatic biliary duct di lation. Portal venous flow was seen in the hepatopedal, normal direction and has normal Doppler wave form. No right-sided hydronephrosis. Common bile duct measures 11 mm, which is dilated but common finding post cholecystectomy. The gallb ladder fossa is unremarkable. IMPRESSION: 1. Mild biliary dilation likely from postcholecystectomy status. Reviewed, dictated and finalized at location A.
--- NOTE | ~2021-05-27 | CT_ITS ---
EXAMINATION: CT abdomen pelvis w con DATE: 05/27/2021 07:36 INDICATION: Epigastric pain with prior pancreatitis. TECHNIQUE: Computed tomography (CT) of the abdomen and pelvis was performed with 100 mL Omnipaque-350 intravenous contrast. Automated exposure control and iterative reconstruction technique were employe d. The dose-length product was 632.31 mGy-cm. COMPARISON: 04/22/2021 FINDINGS: Lung bases are clear. Heart size is normal. No pericardial or pleural effusion. Small sliding-type hi atal hernia with postoperative change of prior Ceferino-en-Y gastric bypass procedure. Cholecystectomy cl ips at the gallbladder fossa. Mild intrahepatic biliary ductal dilation. There is fusiform dilation o f the duct in the uncinate process of the pancreas which measures up to 5-6 mm in maximal diameter. T he main pancreatic duct is normal in caliber measuring up to 3 mm maximal diameter at the head of the pancreas. There is inflammatory stranding centered about the head and uncinate process of the pancre as consistent with acute interstitial pancreatitis. No evident pseudocyst, necrotic collections multi loculated acute peripancreatic fluid collection. Spleen and bilateral kidneys are normal. No signific ant change since 2010 in nodular thickening of the bilateral adrenal glands consistent with small zaira nomas the largest measuring 12 mm in maximal diameter on the left. There is mild colonic diverticulos is with a sigmoid predominance. There is no adjacent inflammatory change to suggest diverticulitis. Small bowel and appendix are normal. Bladder is normal. Prostatomegaly measuring 5.1 x 5.2 cm. No johnathon e intraperitoneal gas. Trace amount of likely reactive free fluid in the deep pelvis. There is calcif ied atherosclerosis of the aorta and many of the other arteries. Mild likely reactive upper abdominal lymphadenopathy with increased number of small lymph nodes, none approaching pathologic enlargement. 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 M oderate bilateral sacroiliac osteoarthritis. IMPRESSION: 1. Radiographically uncomplicated acute interstitial pancreatitis at the head and uncinate process. 2. Nonspecific mild intrahepatic biliary ductal dilation. No evident obstructing stone or mass in thi s could represent sequela of prior cholecystectomy. Reviewed, dictated and finalized at location B. IMPRESSION: 1. Radiographically uncomplicated acute interstitial pancreatitis at the head a nd uncinate process. 2. Nonspecific mild intrahepatic biliary ductal dilation. No evident obstructin g stone or mass in this could represent sequela of prior cholecystectomy.
--- NOTE | ~2021-05-27 | XR_ITS ---
EXAMINATION: XR abdomen/kub 1V DATE: 05/28/2021 12:16 INDICATION: Abdominal pain. TECHNIQUE: A supine view of the abdomen on 2 radiographs was obtained. COMPARISON: CT abdomen and pelvis 05/27/2021 FINDINGS: There are no dilated loops of bowel. There is a bowel anastomosis line in left abdomen. Krystal gical clips in the right upper quadrant are likely from cholecystectomy. There are staple lines in th e stomach. IMPRESSION: 1. Normal bowel gas pattern. Reviewed, dictated and finalized at location A.
[2021-05-27 06:43] LABS: Basophils Percent Auto 0.1 % (0.2-1.2); Eosinophils Absolute Auto 0.3 K/mm3 (0-0.3); Eosinophils Percent Auto 3.7 % (0-4.4); Hematocrit 46.4 % (42.0-52.0); Hemoglobin 15.1 g/dL (14.0-18.0); Immature Granulocyte Absolute 0.02 K/mm3 (0.00-0.031); Immature Granulocyte Percent A 0.3 % (0-0.5); Lymphocytes Absolute Auto 1.13 K/mm3 (0.9-3.2); Lymphocytes Percent Auto 14.9 % (18.3-44.2); Mean Corpuscular HGB Conc 32.5 g/dl (32-36); Mean Corpuscular Hemoglobin 31.3 pg (26-34); Mean Corpuscular Volume 96.3 fl (80-100); Mean Platelet Volume 9.1 fl (7.4-10.4); Monocytes Absolute Auto 0.5 K/mm3 (0.1-0.6); Monocytes Percent Auto 7.1 % (2.6-8.5); Neutrophils Absolute Auto 5.6 K/mm3 (1.3-6.7); Neutrophils Percent Auto 73.9 % (45.5-73.1); Platelet Count Result 226 k/mm3 (150-375); Red Blood Count 4.82 M/mm3 (4.6-6.20); Red Cell Distribution Width 15.3 % (11.5-14.5); White Blood Count 7.6 K/mm3 (4.5-10.0)
[2021-05-27 06:47] LABS: Add Urine Microscopic? YES; Appearance Urine Cloudy (Clear); Bacteria Urine Trace /hpf; Bilirubin Urine Negative (Negative); Blood Urine Negative (Negative); Color Urine Yellow (Yellow); Glucose Urine UA Negative (Negative); Ketones Urine Negative (Negative); Leukocyte Esterase Ur Negative LEU/UL (Negative); Mucus Urine Rare /lpf; Nitrate Urine Negative (Negative); Protein Urine Negative (Negative); RBC Urine 0-2 /hpf (0-2); Specific Grav Ur 1.011 (1.001-1.035); Squamous Epithelial Cell Urine Rare /hpf (Few); Urobilinogen Urine Negative mg/dL (<2.0); WBC Urine 0-3 /hpf
[2021-05-27 06:56] LABS: Alanine Aminotransferase 10 U/L (4-50); Albumin Level 3.6 g/dL (3.5-5.1); Alkaline Phosphatase 102 U/L (38-126); Anion Gap 3 mmol/L (8-16); Aspartate Amino Transferase 20 U/L (17-59); Bilirubin,Total 1.2 mg/dL (0.2-1.3); Blood Urea Nitrogen 4 mg/dL (9-20); Calcium 8.5 mg/dL (8.4-10.2); Carbon Dioxide 30 mmol/L (22-30); Chloride 104 mmol/L (98-107); Estimated CRCL calculation 149 ml/min; Estimated Glomerular Filt Rate > 60; Glucose 109 mg/dL (65-110); Potassium 3.9 mmol/L (3.4-5.0); Sodium 137 mmol/L (137-145)
[2021-05-27 07:04] LABS: Lipase 2015 U/L (23-300)
--- NOTE | 2021-05-27 07:10 | PC.NURSE ---
Patient report received from PATRICK Loera. All questions answered and care of patient assumed.
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
[2021-05-27] MEDS: ONDANSETRON INJ 4 MG/2 ML VIAL IV PUSH (07:17)
[2021-05-27] MEDS: SODIUM CHLORIDE 0.9% IV 1,000 ML 999 ML IV CONT (07:17)
[2021-05-27] MEDS: HYDROmorphone HCL INJ (*CRX) 1 MG/ML SYR 0.5 MG IV PUSH ×2 (07:17→08:11)
[2021-05-27] MEDS: SODIUM CHLORIDE 0.9% IV 1,000 ML 125 ML IV CONT ×2 (09:27→16:43)
[2021-05-27] MEDS: HYDROmorphone HCL INJ (*CRX) 1 MG/ML SYR IV PUSH ×6 (09:33→20:40)
--- NOTE | 2021-05-27 09:57 | PC.NURSE ---
This patient, Eleuterio Rico, was admitted to [facility] Surg Room 328-01. Patient/family oriented to hospital policies and general routines including ID bracelet, bed and alarms, visiting hours, pain management, procedures, bathroom and other care routines, personal items, smoking policy, room service/diet, and visiting hours. Information on how to activate the Rapid Response Team has been discussed. Patient/Family are encouraged to report perceived risks to care and to ask questions if they do not understand what they are told or what they should do.
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
[2021-05-27 12:27] LABS: Triglycerides 61 mg/dL (<150)
--- NOTE | 2021-05-27 15:41 | WPDGICN ---
Assessment and Plan Assessment and plan (1) Acute pancreatitis: Qualifiers: Acute pancreatitis complication: unspecified Pancreatitis type: unspecified pancreatitis type Qualified Code(s): K85.90 - Acute pancreatitis without necrosis or infection, unspecified Code(s): K85.90 - Acute pancreatitis without necrosis or infection, unspecified Status: Acute Assessment and Plan: his lipase this time is over 2000. He states that he is not sure how many times he has had acute pancreatitis as he often was not hospitalized when he had episodes but he thinks this goes back about 30 years. He states that he never was a heavy drinker but admits that he used many narcotics to fight his pain about the time this was beginning, although it seems he was having abdominal pain prior to beginning the narcotics also. He I will try him on clear liquids tonight. We will advance his diet as tolerated. (2) Chronic pancreatitis: Qualifiers: Pancreatitis type: unspecified pancreatitis type Qualified Code(s): K86.1 - Other chronic pancreatitis Code(s): K86.1 - Other chronic pancreatitis Status: Acute Assessment and Plan: despite his multiple episodes of pancreatitis, the fact that he can elevate his lipase as high see does indicates that he still has a fairly decent reserve of pancreatic tissue and consequently is unlikely at this point to have pancreatic insufficiency. (3) S/P gastric surgery: Code(s): Z98.890 - Other specified postprocedural states Status: Acute Assessment and Plan: Forty years ago he had resection of a part of his stomach for a bleeding ulcer. 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 He recently saw pain management physician but does not feel that he got much out of that. He was placed on gabapentin (5) Chronic narcotic use: Code(s): F11.90 - Opioid use, unspecified, uncomplicated Status: Acute Assessment and Plan: as noted above he has been on narcotics in the past in fact took them for a long time including using Demerol or morphine and OxyContin. GI Consult Note Consult date/time: 05/27/21 15:41 HPI: Eleuterio Rico is a 55 year old male who presented to the emergency room this morning with abdominal pain. Was found to have elevated lipase. He has had multiple attacks of pancreatitis. In fact he was just hospitalized here about 1 month ago with similar pain enzyme elevations. Actually his lipase which was around 500 last month his over 2000 this time. Transaminases and bilirubin however are normal. He has had a prior cholecystectomy. He states that he has had pancreatitis for 30 years or so. There was some confusion regarding when pancreatitis began because he had had a bleeding ulcer for which she had an antrectomy almost 40 years ago. Subsequently when he would have pain his applied technologist would blame it on his ulcers. He states that every time he saw applied technologist that would have him double up on his medications. Consequently when I 1st saw him a few months ago he was taking Nexium 40 mg twice a day. He is nauseated and has dry heaves again as he has in the past. He denies any fever chills with this illness which began yesterday. He denies using any recent opioids. We will however discuss the fact that he had been on opioids in the past. Apparently when he was working for an [employer], about 30 years ago, he was on opioids including Demerol, oxycodone and another 1 that the name of which he cannot recall taking 1 or the other from time to time for his pain. He was told that he could not take any of those and was drug tested because of the importance of his employment responsibility
[2021-05-27] MEDS: SERTRALINE HCL 50 MG TABLET 150 MG PO (16:27)
[2021-05-27] MEDS: BACLOFEN 10 MG TABLET 20 MG PO ×2 (16:28→20:38)
[2021-05-27] MEDS: ALPRAZolam (*CRX) 0.5 MG TABLET 1 MG PO ×2 (16:28→20:39)
--- NOTE | 2021-05-27 16:40 | PHAR ---
THE FOLLOWING HOME MEDS HAVE BEEN VERIFIED BY PHARMACY: KEESHA LANGSTON 25,000 UNIT CAPSULE PROPRANOLOL ER 80 MG CAPSULE
[2021-05-27] MEDS: traZODone HCL 50 MG TABLET 150 MG PO (20:38)
[2021-05-27] MEDS: SODIUM CHLORIDE 0.9% IV 1,000 ML 200 ML IV CONT (22:01)
[2021-05-28] MEDS: HYDROmorphone HCL INJ (*CRX) 1 MG/ML SYR IV PUSH ×5 (02:21→10:41)
[2021-05-28] MEDS: SODIUM CHLORIDE 0.9% IV 1,000 ML 200 ML IV CONT ×3 (03:09→13:43)
[2021-05-28 05:47] VITALS: BP 149/83; PULSE 53; RESP 16; TEMP 36.5; O2SAT 95
[2021-05-28 05:59] LABS: Basophils Percent Auto 0.2 % (0.2-1.2); Eosinophils Absolute Auto 0.3 K/mm3 (0-0.3); Eosinophils Percent Auto 4.6 % (0-4.4); Hematocrit 41.7 % (42.0-52.0); Hemoglobin 13.7 g/dL (14.0-18.0); Immature Granulocyte Absolute 0.02 K/mm3 (0.00-0.031); Immature Granulocyte Percent A 0.3 % (0-0.5); Lymphocytes Absolute Auto 1.27 K/mm3 (0.9-3.2); Lymphocytes Percent Auto 20.3 % (18.3-44.2); Mean Corpuscular HGB Conc 32.9 g/dl (32-36); Mean Corpuscular Hemoglobin 31.5 pg (26-34); Mean Corpuscular Volume 95.9 fl (80-100); Mean Platelet Volume 9.3 fl (7.4-10.4); Monocytes Absolute Auto 0.4 K/mm3 (0.1-0.6); Monocytes Percent Auto 6.4 % (2.6-8.5); Neutrophils Absolute Auto 4.3 K/mm3 (1.3-6.7); Neutrophils Percent Auto 68.2 % (45.5-73.1); Platelet Count Result 201 k/mm3 (150-375); Red Blood Count 4.35 M/mm3 (4.6-6.20); Red Cell Distribution Width 14.7 % (11.5-14.5); White Blood Count 6.3 K/mm3 (4.5-10.0)
[2021-05-28 06:09] LABS: Alanine Aminotransferase 8 U/L (4-50); Alkaline Phosphatase 94 U/L (38-126); Anion Gap 3 mmol/L (8-16); Aspartate Amino Transferase 20 U/L (17-59); Bilirubin,Total 1.1 mg/dL (0.2-1.3); Blood Urea Nitrogen 3 mg/dL (9-20); Carbon Dioxide 28 mmol/L (22-30); Chloride 108 mmol/L (98-107); Estimated CRCL calculation 149 ml/min; Estimated Glomerular Filt Rate > 60; Glucose 92 mg/dL (65-110); Lipase 516 U/L (23-300); Potassium 3.8 mmol/L (3.4-5.0); Sodium 139 mmol/L (137-145)
[2021-05-28 08:09] VITALS: O2SAT 94
[2021-05-28] MEDS: ALPRAZolam (*CRX) 0.5 MG TABLET 1 MG PO ×3 (08:38→22:44)
[2021-05-28] MEDS: ENOXAPARIN 40 MG/0.4 ML SYRINGE SUB-Q (08:38)
[2021-05-28] MEDS: MULTIVITAMINS /C LUTEIN (CENTRUM SILVER) TABLET *BKC 1 TAB PO (08:38)
[2021-05-28] MEDS: LORATADINE 10 MG TABLET PO (08:38)
[2021-05-28] MEDS: PANTOPRAZOLE 40 MG TABLET PO (08:38)
[2021-05-28] MEDS: SERTRALINE HCL 50 MG TABLET 150 MG PO (08:39)
[2021-05-28] MEDS: BACLOFEN 10 MG TABLET 20 MG PO ×4 (08:39→21:29)
--- NOTE | 2021-05-28 10:49 | PCNFU ---
Nutrition Follow-Up Complete: Unintentional weight loss related to suboptimal po intake and altered GI function as evidenced by pt report Goal: Meet nutritional needs Patient has limited progress towards goal. We will continue current goal. Pt current nutrition is Clear liquids. Last recorded weight is 84 kg-stable Bowel Motility: No BM reported. Labs Reviewed:Lipase 516,BUN 3, Cr 0.3,Hct 41.7,Hgb 13.7 Meds Noted:Claritin, Protonix, Zoloft, Lovenox, Dilaudid, Xanax Skin: WNL Additional Notes: Nutrition follow up. Patient remains on a clear liquid tray. Pain reported by patient this morning. No PO intake yet for breakfast. About 40% of clear liquids reported last night. Plans for advancing diet as tolerated. Agree with diet orders. Monitor for diet advancement, intake/tolerance, wt, labs. Follow up in 3 days.
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
[2021-05-28] MEDS: HYDROmorphone HCL INJ (*CRX) 1 MG/ML SYR 1.5 MG IV PUSH ×3 (12:53→22:44)
[2021-05-28 14:00] VITALS: BP 135/98; PULSE 52; RESP 14; TEMP 36.2; O2SAT 99
--- NOTE | 2021-05-28 15:27 | WPDGIPROGNO ---
Progress Note: A&P Assessment and Plan (1) Acute pancreatitis: Qualifiers: Acute pancreatitis complication: unspecified Pancreatitis type: unspecified pancreatitis type Qualified Code(s): K85.90 - Acute pancreatitis without necrosis or infection, unspecified Code(s): K85.90 - Acute pancreatitis without necrosis or infection, unspecified Status: Acute Assessment and Plan: 05/27 his lipase this time is over 2000. He states that he is not sure how many times he has had acute pancreatitis as he often was not hospitalized when he had episodes but he thinks this goes back about 30 years. He states that he never was a heavy drinker but admits that he used many narcotics to fight his pain about the time this was beginning, although it seems he was having abdominal pain prior to beginning the narcotics also. I will try him on clear liquids tonight. We will advance his diet as tolerated. 05/28 his pain seemed to be worse today. He was made NPO which is reasonable. I explained to the patient that there is no point try to stimulate his pancreas with feedings while he is still having pain. His lipase has come down however (2) Chronic pancreatitis: Qualifiers: Pancreatitis type: unspecified pancreatitis type Qualified Code(s): K86.1 - Other chronic pancreatitis Code(s): K86.1 - Other chronic pancreatitis Status: Acute Assessment and Plan: despite his multiple episodes of pancreatitis, the fact that he can elevate his lipase as high see does indicates that he still has a fairly decent reserve of pancreatic tissue and consequently is unlikely at this point to have pancreatic insufficiency. 05/28 I discussed with him the option of being treated at [facility] where he has had prior attempts of ablation of nerves to help deal with his chronic pain. He cannot recall whether not he has ever had pancreatic duct stenting. I would imagine they would have done an ERCP at some point [facility] to see if he had ampullary stenosis or pancreatic duct calculi. (3) S/P gastric surgery: Code(s): Z98.890 - Other specified postprocedural states Status: Acute Assessment and Plan: Forty years ago he had resection of a part of his stomach for a bleeding ulcer. 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 He recently saw pain management physician but does not feel that he got much out of that. He was placed on gabapentin 05/28 explained him that we cannot keep him on opioids chronically. I suggested he get back to [facility] where they had been attempting nerve block or other pain management measures. (5) Chronic narcotic use: Code(s): F11.90 - Opioid use, unspecified, uncomplicated Status: Acute Assessment and Plan: as noted above he has been on narcotics in the past in fact took them for a long time including using Demerol or morphine and OxyContin. (6) Gastroesophageal reflux disease: Code(s): K21.9 - Gastro-esophageal reflux disease without esophagitis Status: Acute Assessment and Plan: We discussed Nexium which she has taken without any benefit for long time. He recalls that I told him after the endoscopy last month that he had erosive esophagitis and also that he had a subtotal gastrectomy with removal of all the parietal cell portion of the stomach. Consequently he does not make gastric acid. I had started him on Carafate and he states that after a couple doses that somehow was discontinued. He would like to try that again to see if it might somehow alleviate his symptoms. I will start him on Carafate 1 g 4 times a day Subjective Date/time seen: 05/28/21 15:27 his having more pain today. His pain is continuous and rel
[2021-05-28] MEDS: SUCRALFATE 1 GM TABLET PO ×2 (17:39→21:29)
[2021-05-28 20:52] VITALS: O2SAT 93
[2021-05-28] MEDS: traZODone HCL 50 MG TABLET 150 MG PO (21:29)
[2021-05-28] MEDS: hydrALAZINE HCL 20 MG/ML VIAL 10 MG IV PUSH (21:30)
[2021-05-28 22:00] VITALS: BP 170/87; PULSE 52; RESP 18; TEMP 37.2; O2SAT 96
[2021-05-28 23:21] VITALS: BP 145/60
[2021-05-29] MEDS: SODIUM CHLORIDE 0.9% IV 1,000 ML 200 ML IV CONT ×4 (00:06→21:07)
[2021-05-29] MEDS: HYDROmorphone HCL INJ (*CRX) 1 MG/ML SYR 1.5 MG IV PUSH ×6 (05:05→20:25)
[2021-05-29] MEDS: SUCRALFATE 1 GM TABLET PO ×3 (05:51→20:22)
[2021-05-29 06:00] VITALS: BP 160/80; PULSE 60; RESP 16; TEMP 36.8; O2SAT 98
[2021-05-29 06:02] LABS: Basophils Percent Auto 0.2 % (0.2-1.2); Eosinophils Absolute Auto 0.3 K/mm3 (0-0.3); Eosinophils Percent Auto 5.3 % (0-4.4); Hematocrit 43.4 % (42.0-52.0); Hemoglobin 14.5 g/dL (14.0-18.0); Immature Granulocyte Absolute 0.01 K/mm3 (0.00-0.031); Immature Granulocyte Percent A 0.2 % (0-0.5); Lymphocytes Percent Auto 23.8 % (18.3-44.2); Mean Corpuscular HGB Conc 33.4 g/dl (32-36); Mean Corpuscular Hemoglobin 31.5 pg (26-34); Mean Corpuscular Volume 94.3 fl (80-100); Mean Platelet Volume 9.3 fl (7.4-10.4); Monocytes Absolute Auto 0.5 K/mm3 (0.1-0.6); Monocytes Percent Auto 8.2 % (2.6-8.5); Neutrophils Absolute Auto 3.4 K/mm3 (1.3-6.7); Neutrophils Percent Auto 62.3 % (45.5-73.1); Platelet Count Result 202 k/mm3 (150-375); Red Cell Distribution Width 14.7 % (11.5-14.5); White Blood Count 5.5 K/mm3 (4.5-10.0)
[2021-05-29 06:16] LABS: Alanine Aminotransferase 63 U/L (4-50); Albumin Level 3.2 g/dL (3.5-5.1); Alkaline Phosphatase 269 U/L (38-126); Anion Gap 4 mmol/L (8-16); Aspartate Amino Transferase 124 U/L (17-59); Bilirubin,Total 2.2 mg/dL (0.2-1.3); Calcium 8.1 mg/dL (8.4-10.2); Carbon Dioxide 29 mmol/L (22-30); Chloride 106 mmol/L (98-107); Estimated CRCL calculation 179 ml/min; Estimated Glomerular Filt Rate > 60; Glucose 84 mg/dL (65-110); Lipase 556 U/L (23-300); Magnesium 1.6 mg/dL (1.6-2.3); Potassium 3.8 mmol/L (3.4-5.0); Sodium 139 mmol/L (137-145)
[2021-05-29 06:29] LABS: Blood Urea Nitrogen < 2 mg/dL (9-20)
[2021-05-29 08:00] VITALS: PULSE 60; RESP 16; O2SAT 98
[2021-05-29] MEDS: ENOXAPARIN 40 MG/0.4 ML SYRINGE SUB-Q (09:00)
[2021-05-29] MEDS: MULTIVITAMINS /C LUTEIN (CENTRUM SILVER) TABLET *BKC 1 TAB PO (09:00)
[2021-05-29] MEDS: SERTRALINE HCL 50 MG TABLET 150 MG PO (09:00)
[2021-05-29] MEDS: LORATADINE 10 MG TABLET PO (09:00)
[2021-05-29] MEDS: PANTOPRAZOLE 40 MG TABLET PO (09:00)
[2021-05-29] MEDS: BACLOFEN 10 MG TABLET 20 MG PO ×4 (09:01→20:22)
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
[2021-05-29 14:00] VITALS: BP 154/102; PULSE 80; RESP 18; TEMP 36.3; O2SAT 99
[2021-05-29] MEDS: ALPRAZolam (*CRX) 0.5 MG TABLET 1 MG PO ×2 (14:16→20:57)
[2021-05-29] MEDS: GABAPENTIN 300 MG CAPSULE PO (18:39)
[2021-05-29] MEDS: amLODIPine BESYLATE 5 MG TABLET PO (18:39)
[2021-05-29] MEDS: traZODone HCL 50 MG TABLET 150 MG PO (20:22)
[2021-05-29 22:00] VITALS: BP 142/89; PULSE 50; RESP 16; TEMP 37.1; O2SAT 97
[2021-05-29 22:28] VITALS: O2SAT 97
[2021-05-30] MEDS: SUCRALFATE 1 GM TABLET PO ×3 (05:54→20:23)
[2021-05-30] MEDS: SODIUM CHLORIDE 0.9% IV 1,000 ML 200 ML IV CONT (05:54)
[2021-05-30] MEDS: HYDROmorphone HCL INJ (*CRX) 1 MG/ML SYR 1.5 MG IV PUSH ×4 (05:56→19:32)
[2021-05-30 06:00] VITALS: BP 143/103; PULSE 59; RESP 16; TEMP 37.1; O2SAT 97
[2021-05-30 06:09] LABS: Hematocrit 41.7 % (42.0-52.0); Hemoglobin 14.3 g/dL (14.0-18.0); Mean Corpuscular HGB Conc 34.3 g/dl (32-36); Mean Corpuscular Hemoglobin 31.8 pg (26-34); Mean Corpuscular Volume 92.9 fl (80-100); Mean Platelet Volume 9.5 fl (7.4-10.4); Platelet Count Result 202 k/mm3 (150-375); Red Blood Count 4.49 M/mm3 (4.6-6.20); Red Cell Distribution Width 14.6 % (11.5-14.5); White Blood Count 6.7 K/mm3 (4.5-10.0)
[2021-05-30 06:16] LABS: Alanine Aminotransferase 54 U/L (4-50); Albumin Level 3.2 g/dL (3.5-5.1); Alkaline Phosphatase 253 U/L (38-126); Anion Gap 5 mmol/L (8-16); Aspartate Amino Transferase 72 U/L (17-59); Bilirubin,Total 2.1 mg/dL (0.2-1.3); Calcium 8.1 mg/dL (8.4-10.2); Carbon Dioxide 28 mmol/L (22-30); Chloride 104 mmol/L (98-107); Estimated CRCL calculation 229 ml/min; Estimated Glomerular Filt Rate > 60; Glucose 97 mg/dL (65-110); Lipase 100 U/L (23-300); Magnesium 1.4 mg/dL (1.6-2.3); Potassium 3.3 mmol/L (3.4-5.0); Sodium 137 mmol/L (137-145)
[2021-05-30 06:24] LABS: Blood Urea Nitrogen < 2 mg/dL (9-20)
[2021-05-30 08:00] VITALS: PULSE 59; RESP 16; O2SAT 97
[2021-05-30] MEDS: ONDANSETRON INJ 4 MG/2 ML VIAL IV PUSH (08:27)
[2021-05-30] MEDS: amLODIPine BESYLATE 5 MG TABLET PO (08:36)
[2021-05-30] MEDS: LORATADINE 10 MG TABLET PO (08:36)
[2021-05-30] MEDS: ENOXAPARIN 40 MG/0.4 ML SYRINGE SUB-Q (08:36)
[2021-05-30] MEDS: MULTIVITAMINS /C LUTEIN (CENTRUM SILVER) TABLET *BKC 1 TAB PO (08:37)
[2021-05-30] MEDS: PANTOPRAZOLE 40 MG TABLET PO (08:37)
[2021-05-30] MEDS: GABAPENTIN 300 MG CAPSULE PO ×3 (08:39→18:09)
[2021-05-30] MEDS: SERTRALINE HCL 50 MG TABLET 150 MG PO (08:39)
[2021-05-30] MEDS: BACLOFEN 10 MG TABLET 20 MG PO ×4 (08:42→20:23)
[2021-05-30] MEDS: MAGNESIUM SULF 2 GM/WATER 50ML 2 GM/50 ML BAG IVPB (12:14)
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
[2021-05-30 14:00] VITALS: BP 140/92; PULSE 60; RESP 20; TEMP 36.5; O2SAT 97
[2021-05-30] MEDS: HYDROmorphone HCL (*CRX) 4 MG TABLET PO (15:01)
[2021-05-30] MEDS: ALPRAZolam (*CRX) 0.5 MG TABLET 1 MG PO ×2 (16:13→20:25)
[2021-05-30] MEDS: SODIUM CHLORIDE 0.9% IV 1,000 ML 125 ML IV CONT (19:33)
[2021-05-30 20:19] VITALS: BP 142/124; PULSE 60; RESP 20; TEMP 36.3; O2SAT 95
[2021-05-30] MEDS: traZODone HCL 50 MG TABLET 150 MG PO (20:22)
[2021-05-31] MEDS: HYDROmorphone HCL INJ (*CRX) 1 MG/ML SYR 1.5 MG IV PUSH (03:23)
[2021-05-31 05:40] LABS: Basophils Percent Auto 0.2 % (0.2-1.2); Eosinophils Absolute Auto 0.3 K/mm3 (0-0.3); Hematocrit 38.3 % (42.0-52.0); Hemoglobin 12.7 g/dL (14.0-18.0); Immature Granulocyte Absolute 0.02 K/mm3 (0.00-0.031); Immature Granulocyte Percent A 0.4 % (0-0.5); Lymphocytes Absolute Auto 1.47 K/mm3 (0.9-3.2); Lymphocytes Percent Auto 29.2 % (18.3-44.2); Mean Corpuscular HGB Conc 33.2 g/dl (32-36); Mean Corpuscular Hemoglobin 31.1 pg (26-34); Mean Corpuscular Volume 93.9 fl (80-100); Mean Platelet Volume 9.7 fl (7.4-10.4); Monocytes Absolute Auto 0.6 K/mm3 (0.1-0.6); Monocytes Percent Auto 10.9 % (2.6-8.5); Neutrophils Absolute Auto 2.7 K/mm3 (1.3-6.7); Neutrophils Percent Auto 54.3 % (45.5-73.1); Platelet Count Result 172 k/mm3 (150-375); Red Blood Count 4.08 M/mm3 (4.6-6.20); Red Cell Distribution Width 14.6 % (11.5-14.5)
[2021-05-31 05:53] VITALS: BP 132/91; PULSE 56; RESP 18; TEMP 36.8; O2SAT 94
[2021-05-31 05:55] LABS: Alanine Aminotransferase 39 U/L (4-50); Alkaline Phosphatase 201 U/L (38-126); Anion Gap 5 mmol/L (8-16); Aspartate Amino Transferase 35 U/L (17-59); Bilirubin,Total 1.2 mg/dL (0.2-1.3); Blood Urea Nitrogen 2 mg/dL (9-20); Calcium 7.9 mg/dL (8.4-10.2); Carbon Dioxide 27 mmol/L (22-30); Chloride 104 mmol/L (98-107); Estimated CRCL calculation 179 ml/min; Estimated Glomerular Filt Rate > 60; Glucose 91 mg/dL (65-110); Magnesium 1.6 mg/dL (1.6-2.3); Potassium 3.3 mmol/L (3.4-5.0); Sodium 136 mmol/L (137-145)
[2021-05-31] MEDS: SUCRALFATE 1 GM TABLET PO ×2 (06:01→12:02)
[2021-05-31] MEDS: HYDROmorphone HCL (*CRX) 4 MG TABLET PO ×2 (07:50→12:01)
[2021-05-31 08:00] VITALS: PULSE 56; RESP 18; O2SAT 94
[2021-05-31] MEDS: ALPRAZolam (*CRX) 0.5 MG TABLET 1 MG PO ×2 (09:05→13:37)
[2021-05-31] MEDS: GABAPENTIN 300 MG CAPSULE PO ×2 (09:06→13:38)
[2021-05-31] MEDS: MULTIVITAMINS /C LUTEIN (CENTRUM SILVER) TABLET *BKC 1 TAB PO (09:06)
[2021-05-31] MEDS: BACLOFEN 10 MG TABLET 20 MG PO ×2 (09:06→13:38)
[2021-05-31] MEDS: amLODIPine BESYLATE 5 MG TABLET PO (09:07)
[2021-05-31] MEDS: SERTRALINE HCL 50 MG TABLET 150 MG PO (09:07)
[2021-05-31] MEDS: ENOXAPARIN 40 MG/0.4 ML SYRINGE SUB-Q (09:08)
[2021-05-31] MEDS: PANTOPRAZOLE 40 MG TABLET PO (09:08)
[2021-05-31] MEDS: LORATADINE 10 MG TABLET PO (09:08)
--- NOTE | 2021-05-31 11:14 | PCNFU ---
Nutrition Follow-Up Complete: Unintentional weight loss related to suboptimal po intake and altered GI function as evidenced by pt report Goal:Meet nutritional needs Pt progressing towards goal. Pt current nutrition is full liquid diet with supplements. Nutrition recommendation: Continue with current plan of care Last recorded weight is 85 kg - stable since admission. Bowel Motility:+BM 05/30 Labs Reviewed:BUN:2 CRE: 0.4 Meds Noted:zofran, MVI Skin: WNL Additional Notes: Pt diet advanced, tolerating fair, intake 75%, still reports some issues with N/V but kept breakfast down well. Supplements ordered with tray. Will make sure supplement is Ensure compact on tray. Pt states drinks muscle milk at home. Monitor for diet advancement, intake/tolerance, wt, labs. Follow up in 5 days.
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
[2021-05-31 14:00] VITALS: BP 166/86; PULSE 59; RESP 20; TEMP 36.4; O2SAT 99
== END 2021-05-31 15:00 | disposition home or self-care (01) | DRG 440 ==
LOC: ANHED 08:16 → ANH3MEDSUR 08:46
PROVIDERS: General Practice; Admitting Provider Internal Medicine; Emergency Provider Emergency Medicine; PCP Internal Medicine; Visit Provider Internal Medicine
DX: K85.90 Acute pancreatitis without necrosis or infection, unspecified (principal); F41.9 Anxiety disorder, unspecified; G89.29 Other chronic pain; M54.9 Dorsalgia, unspecified; K86.1 Other chronic pancreatitis; K21.9 Gastro-esophageal reflux disease without esophagitis; I10 Essential (primary) hypertension; F43.10 Post-traumatic stress disorder, unspecified; Z87.11 Personal history of peptic ulcer disease; Z98.84 Bariatric surgery status; Z87.891 Personal history of nicotine dependence; F12.90 Cannabis use, unspecified, uncomplicated; K27.9 Peptic ulcer, site unspecified, unspecified as acute or chronic, without hemorrhage or perforation; G89.4 Chronic pain syndrome; Z90.49 Acquired absence of other specified parts of digestive tract
CPT/HCPCS: 36415; 74018; 74177; 76705; 80053; 81001; 83690; 83735; 84478; 85025; 85027; 96361; 96374; 96375; 96376; 99285; A9270; G0378; J0360; J1170; J1650; J2405; J3475; J7030; Q9967

== ENCOUNTER 2021-07-27 06:44 | Outpatient (CLI) | payer BC, SELFPAY ==
--- NOTE | ~2021-07-27 | MR_ITS ---
EXAMINATION: MR MRCP wo/w con/w 3D wo ind DATE: 07/27/2021 08:08 INDICATION: Acute pancreatitis without necrosis or infection. TECHNIQUE: Magnetic resonance imaging (MRI) of the abdomen was performed without and with 15 mL Multi Tulio intravenous contrast. COMPARISON: Abdomen ultrasound 05/30/2021, CT abdomen and pelvis FINDINGS: ABDOMEN MRI: There are surgical changes of the stomach. The gallbladder is absent. The pancreatic adrian t is mildly dilated, consistent with chronic pancreatitis. The spleen is normal in size. There are ma sses in the spleen measuring up to 7 mm, likely benign. The adrenal glands are normal. There are cyst s in the kidneys measuring up to 8 mm on the left. There are no dilated loops of bowel. There are no pathologically enlarged lymph nodes. There is no free intraperitoneal fluid. ABDOMEN MRCP: The common duct is normal and measures 7 mm. No choledocholithiasis. IMPRESSION: 1. Mildly dilated pancreatic duct, consistent with chronic pancreatitis. 2. Normal common duct. No choledocholithiasis. Reviewed, dictated and finalized at location A.
[2021-07-27 07:13] LABS: Estimated Glomerular Filt Rate > 60
== END 2021-07-27 06:45 | disposition home or self-care (01) ==
PROVIDERS: PCP Internal Medicine; Visit Provider Internal Medicine Gastroenterology
DX: K85.90 Acute pancreatitis without necrosis or infection, unspecified (principal)
CPT/HCPCS: 74183; 76376; A9577

== ENCOUNTER 2021-08-09 15:17 | Emergency (ER) | payer BC, SELFPAY ==
--- NOTE | ~2021-08-09 | CT_ITS ---
EXAMINATION: CTA chest abdomen pelvis EXAM DATE: 08/09/2021 17:45 INDICATION: pain in chest with paresthesias RUE/RLE . TECHNIQUE: Computed tomographic angiography (CTA) of the chest was performed without and with 100 mL Omnipaque-350 intravenous contrast. Automated exposure control and iterative reconstruction technique were employed. The dose-length product was 942.10 mGy-cm. Maximum intensity projection 3D-reconstruc tions of the aorta and other arteries were constructed by the technologist on a separate workstation. COMPARISON: CT abdomen pelvis 05/27/2021, CT chest 01/01/2021, MRCP 07/27/2021. FINDINGS: Aorta and pulmonary arteries are poorly opacified. Examination of the arteries is technical ly limited, however no obvious dissection flap detected. Thoracic aorta is dilated to 4.5 cm. Scannin g was performed through the renal arteries. The celiac, SMA, renal arteries are widely patent, with m oderate atherosclerotic calcifications of the abdominal aorta and branch vessels. There are no pleura l or pericardial effusions. Tracheobronchial tree is patent. Scattered centrilobular nodular and gr oundglass opacities as well as tree-in-bud opacities borderline mediastinal and hilar lymphadenopathy . There is no pneumothorax. Heart normal in size. There is minimal coronary arterial calcificati on. Prior gastric surgery. Moderate intrahepatic biliary duct dilatation and dilation of the common bile duct. Mild inflammatory change at the pancreatic head, the pancreatic head parenchyma is heterog eneous with suggestion of low-density areas that could represent edema, however a mass cannot be excl uded. No acute osseous finding. IMPRESSION: 4.5 cm fusiform thoracic aortic aneurysm. Electronically signed by Abiodun Goldberg M.D. on 18:44 CDT Moderate intra-/extra-axial hepatic biliary duct dilatation, correlate with obstruc tive labs. Possible mild pancreatitis. Heterogeneous pancreatic parenchyma should be further evaluate d by nonemergent, outpatient MRI of the pancreas. Reviewed, dictated and finalized at location [facility]. IMPRESSION: 4.5 cm fusiform thoracic aortic aneurysm. Moderate intra-/extra-axial hepatic hellen iary duct dilatation, correlate with obstructive labs. Possible mild pancreatit is. Heterogeneous pancreatic parenchyma should be further evaluated by nonemerg ent, outpatient MRI of the pancreas.
--- NOTE | ~2021-08-09 | CT_ITS ---
Patient Name: Patient Name MR#: Patient MRN Accession#: Accession Numbers EXAMINATION: CTA brain carotid DATE: 08/09/2021 17:45 INDICATION: R sided numbness TECHNIQUE: Computed tomographic angiography (CTA) of the head was performed without and with 100 mL O mnipaque-350 intravenous contrast. CTA of the neck was performed with intravenous contrast Automated exposure control and iterative reconstruction technique were employed. The dose-length product was 18 17.74 mGy-cm. Maximum intensity projection and volume rendered 3D-reconstructions were created by the technologist on a separate workstation. COMPARISON: MRI brain 08/20/2004. FINDINGS: CTA NECK: Aortic arch and proximal great vessels: Atherosclerotic calcifications at the visualized aortic arch and proximal great vessels. Aortic ectasia. Right common carotid, carotid bifurcation, and internal carotid artery: Calcified atherosclerotic elisha ques at the bifurcation.There is 0% stenosis of the proximal right internal carotid artery relative t o normal distal artery lumen diameter (NASCET criteria). Left common carotid, carotid bifurcation, and internal carotid artery: Calcified atherosclerotic plaq ues at the bifurcation.There is 0% stenosis of the proximal left internal carotid artery relative to normal distal artery lumen diameter (NASCET criteria). Vertebral arteries: No significant plaque or stenosis. Other findings: None. CTA HEAD: No large vessel occlusion, aneurysm, high flow vascular malformation, nidus or extravasation. Calcifi ed plaques at the cavernous portion of the carotid, without severe stenosis. No acute large vessel infarct, intracranial hemorrhage, mass, or hydrocephalus. Ethmoid air cell muco laureano thickening. IMPRESSION: 1. No acute intracranial process. 2. No large vessel occlusion. Reviewed, dictated and finalized at location K.
[2021-08-09 15:29] VITALS: BP 124/89; PULSE 58; RESP 16; TEMP 37; O2SAT 100
--- NOTE | 2021-08-09 15:31 | ECG_ITS ---
Measurements Intervals Onset Rate: 53 P: 42 UT: 156 QRS: 12 QRSD: 94 T: 31 QT: 412 QTc: 389 Interpretive Statements SINUS BRADYCARDIA BORDERLINE ECG NO PREVIOUS ECG AVAILABLE FOR COMPARISON Electronically Signed On 08-09-2021 16:17:58 CDT by Reid Long M.D.
[2021-08-09 15:59] LABS: Basophils Percent Auto 0.2 % (0.2-1.2); Eosinophils Absolute Auto 0.3 K/mm3 (0-0.3); Eosinophils Percent Auto 4.9 % (0-4.4); Hematocrit 50.2 % (42.0-52.0); Hemoglobin 16.2 g/dL (14.0-18.0); Immature Granulocyte Absolute 0.01 K/mm3 (0.00-0.031); Immature Granulocyte Percent A 0.2 % (0-0.5); Lymphocytes Absolute Auto 1.87 K/mm3 (0.9-3.2); Lymphocytes Percent Auto 30.4 % (18.3-44.2); Mean Corpuscular HGB Conc 32.3 g/dl (32-36); Mean Corpuscular Hemoglobin 31.3 pg (26-34); Mean Corpuscular Volume 97.1 fl (80-100); Mean Platelet Volume 9.3 fl (7.4-10.4); Monocytes Absolute Auto 0.5 K/mm3 (0.1-0.6); Monocytes Percent Auto 7.5 % (2.6-8.5); Neutrophils Absolute Auto 3.5 K/mm3 (1.3-6.7); Neutrophils Percent Auto 56.8 % (45.5-73.1); Platelet Count Result 304 k/mm3 (150-375); Red Blood Count 5.17 M/mm3 (4.6-6.20); Red Cell Distribution Width 15.1 % (11.5-14.5); White Blood Count 6.2 K/mm3 (4.5-10.0)
[2021-08-09 16:05] LABS: Ethanol < 10 mg/dL (<10)
[2021-08-09 16:18] LABS: Prothrombin Time 12.8 Seconds (11.1-14.7)
[2021-08-09 16:19] LABS: Partial Thromboplastin Time 32.7 SECONDS (22.3-36.8)
[2021-08-09 16:36] LABS: Alanine Aminotransferase 13 U/L (6-50); Albumin Level 2.9 g/dL (3.5-5.1); Alkaline Phosphatase 121 U/L (38-126); Anion Gap 3 mmol/L (8-16); Aspartate Amino Transferase 22 U/L (17-59); Bilirubin,Total 0.7 mg/dL (0.2-1.3); Blood Urea Nitrogen 7 mg/dL (9-20); Calcium 8.1 mg/dL (8.4-10.2); Carbon Dioxide 27 mmol/L (22-30); Chloride 106 mmol/L (98-107); Estimated CRCL calculation 168 ml/min; Estimated Glomerular Filt Rate > 60; Glucose 132 mg/dL (65-110); Potassium 3.3 mmol/L (3.4-5.0); Sodium 136 mmol/L (137-145)
[2021-08-09 16:46] LABS: Troponin I < 0.012 ng/mL (0.000-0.034)
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
[2021-08-09] MEDS: diphenhydrAMINE HCl INJ 50 MG/ML VIAL 25 MG IV PUSH (18:03)
[2021-08-09] MEDS: METOCLOPRAMIDE HCL INJ 10 MG/2 ML VIAL IV PUSH (18:03)
[2021-08-09] MEDS: HYDROmorphone HCL INJ (*CRX) 1 MG/ML SYR IV PUSH (18:39)
[2021-08-09 19:29] VITALS: BP 132/70; PULSE 48; RESP 18; O2SAT 99
[2021-08-09 19:56] VITALS: BP 143/90; PULSE 45; RESP 18; O2SAT 99
--- NOTE | 2021-08-09 20:33 | PC.NURSE ---
patient stated he did not want to wait for a CT surgery referral and wanted to be discharged. patient also angry that opiate use was included on his discharge dx because he stated that was not the reason he was in the er.
== END 2021-08-09 20:37 | disposition home or self-care (01) ==
PROVIDERS: Emergency Provider Emergency Medicine; PCP Internal Medicine
DX: R20.2 Paresthesia of skin (principal); I71.2 Thoracic aortic aneurysm, without rupture; F11.90 Opioid use, unspecified, uncomplicated; K86.1 Other chronic pancreatitis; K21.9 Gastro-esophageal reflux disease without esophagitis; I10 Essential (primary) hypertension; F41.9 Anxiety disorder, unspecified; Z98.1 Arthrodesis status; Z98.84 Bariatric surgery status; Z86.711 Personal history of pulmonary embolism; Z87.891 Personal history of nicotine dependence; R00.1 Bradycardia, unspecified
CPT/HCPCS: 36415; 70496; 70498; 71275; 74174; 80053; 80307; 84484; 85025; 85610; 85730; 93005; 96374; 96375; 99284; J1170; J1200; J2765; Q9967

== ENCOUNTER 2021-09-21 09:39 | Outpatient (CLI) | payer BC, SELFPAY ==
--- NOTE | ~2021-09-21 | XR_ITS ---
EXAMINATION: XR barium swallow w SBFT DATE: 09/21/2021 11:48 INDICATION: Trauma weight loss, nausea and diarrhea TECHNIQUE: The patient drank thick barium, gas-producing crystals, and thin barium. Fluoroscopic spot radiographs of the hypopharynx, esophagus, stomach and proximal small bowel were obtained. Additiona l overhead radiographs were obtained during the transit through the small bowel. Spot fluoroscopic i mages of the small bowel were obtained upon contrast reaching the cecum. Fluoroscopy exposure time wa s 0.6 minutes. A total of 4 overhead radiographs and 1230 fluoroscopic images were obtained. COMPARISON: CT chest, abdomen and pelvis dated 08/09/2021 FINDINGS: The pharynx is symmetric and without evidence of mass lesion or mucosal irregularity. The esophagus i s normal without mass or stricture. Esophageal motility is normal. There is a small sliding-type hiat al hernia. There is an indentation along the anterior and left sides of the lumen of the esophagus at the gastroesophageal junction which appears to very in contour during the course of the swallow like ly either an esophageal aorta B ring. Postoperative change of prior gastric bypass procedure with rap id passage of contrast through the small intrathoracic and small intra-abdominal portion of the stoma ch and across the gastrojejunal anastomosis. No leakage of contrast into the excluded portion of the stomach. There was no gastroesophageal reflux with provocative maneuvers. Transit time from the stoma ch to proximal colon was approximately 30 minutes. There is normal caliber and mucosal fold pattern t hroughout the small bowel. Terminal ileum is normal. No tethering or abnormal mass effect observed upon the small bowel with real-time fluoroscopy. Cholecystectomy clips in right upper quadrant. IMPRESSION: 1. Postoperative changes of prior Ceferino-en-Y gastric bypass procedure with no stricture. 2. Small sliding-type hiatal hernia with indentation along the anterior left margin of the distal eso phagus near the level of the gastroesophageal junction most likely either an esophageal B ring althou gh malignancy cannot be absolutely excluded. Would recommend further evaluation with endoscopy if thi s has not been recently performed. 3. Normal small bowel follow-through with contrast reaching the normal terminal ileum and cecum by 30 minutes. Reviewed, dictated and finalized at location A. IMPRESSION: 1. Postoperative changes of prior Ceferino-en-Y gastric bypass procedure with no st ricture. 2. Small sliding-type hiatal hernia with indentation along the anterior left ma rgin of the distal esophagus near the level of the gastroesophageal junction mo st likely either an esophageal B ring although malignancy cannot be absolutely excluded. Would recommend further evaluation with endoscopy if this has not bee n recently performed. 3. Normal small bowel follow-through with contrast reaching the normal terminal ileum and cecum by 30 minutes.
== END 2021-09-21 09:40 | disposition home or self-care (01) ==
LOC: ANHIMG 09:41
PROVIDERS: PCP Internal Medicine; Visit Provider Internal Medicine
DX: R11.2 Nausea with vomiting, unspecified (principal); R63.4 Abnormal weight loss; R68.81 Early satiety; K44.9 Diaphragmatic hernia without obstruction or gangrene
CPT/HCPCS: 74240

== ENCOUNTER 2021-12-23 19:02 | Emergency (ER) | payer BC, SELFPAY ==
--- NOTE | ~2021-12-23 | CT_ITS ---
EXAMINATION: CT abdomen pelvis w con DATE: 12/23/2021 20:42 INDICATION: Upper abdominal pain for 2 days. Nausea and vomiting. History of pancreatitis. TECHNIQUE: Computed tomography (CT) of the abdomen and pelvis was performed with 100 CC Omnipaque 350 intravenous contrast. Automated exposure control and iterative reconstruction technique were employe d. Exam dose: 386.87 mGy-cm total exam DLP. COMPARISON: CTA chest abdomen pelvis 07/27/2021 MR MRCP FINDINGS: There is patchy middle lobe and to a greater extent right lower lobe pulmonary infiltrate. Differential diagnosis includes pneumonia and aspiration pneumonitis. Normal heart size. No pericardial or pleural effusion. Small sliding hiatal hernia. Fluid and fluid level in the distal esophagus suggesting reflux. Status post Ceferino-en-Y gastric right breast procedure, with JJ anastomosis in expected position of the left midabdomen. Status post cholecystectomy. There is prominence of the intrahepatic and extrahepatic bile ducts, whi ch may be secondary to cholecystectomy. However, correlation with serum bilirubin is recommended. Sev ere degenerative disc no hepatic, splenic, pancreatic, adrenal or suspicious renal space occupying ma ss lesion is detected. A few small renal cysts are noted. No urinary tract calculus or hydroureterone phrosis. There is very prominent prostate enlargement as well as some prostate calcifications. The prostate ca uses a very prominent impression upon the base of the urinary bladder. There is mild diffuse bladder wall thickening. There is abdominal aortic and iliac arterial calcification as well as femoral artery calcification, w ithout aneurysm. Renal artery calcifications are noted, particularly prominent on the right. No intraperitoneal or retroperitoneal or pelvic mass lesion or adenopathy or ascites is detected. Soft tissue thickening of the wall is suggested in the distal sigmoid colon. Colon workup is recommen ded if this has not been done recently by barium enema or colonoscopy. No evidence of appendicitis. No bowel obstruction or intraperitoneal free air. Bilateral L5 pars interarticularis defects with associated grade 1 anterolisthesis at L5-S1. There is moderate degenerative disc disease with mild retrolisthesis at L4-5. IMPRESSION: Right middle lobe and to a greater extent right lower lobe patchy pulmonary infiltrates; differential diagnosis includes pneumonia, aspiration pneumonitis Small sliding hiatal hernia Status post Ceferino-en-Y gastric bypass Status post cholecystectomy Prominent intrahepatic and extra hepatic bile duct; recommend correlation with serum bilirubin Prominent prostate enlargement and calcification Soft tissue prominence along the distal descending colon;: Workup is recommended if this has not been done recently by barium enema or colonoscopy Bilateral L5 pars intra-articular is defects with grade 1 anterolisthesis at L5-S1 Reviewed, dictated and finalized at [facility]. Reviewed, dictated and finalized at location A. IMPRESSION: Right middle lobe and to a greater extent right lower lobe patchy pulmonary infiltrates; differential diagnosis includes pneumonia, aspiration pn eumonitis Small sliding hiatal hernia Status post Ceferino-en-Y gastric bypass Status post cholecystectomy Prominent intrahepatic and extra hepatic bile duct; recommend correlation with serum bilirubin Prominent prostate enlargement and calcification Soft tissue prominence along the distal descending colon;: Workup is recommende d if this has not been done recently by barium enema or colonoscopy Bilateral L5 pars intra-articular is defects with grade 1 anterolisthesis at L5 -S1
[2021-12-23 19:06] VITALS: BP 111/80; PULSE 56; RESP 16; TEMP 37.1; O2SAT 100
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
[2021-12-23 19:39] LABS: Basophils Percent Auto 0.3 % (0.2-1.2); Eosinophils Absolute Auto 0.2 K/mm3 (0-0.3); Eosinophils Percent Auto 3.9 % (0-4.4); Hematocrit 34.3 % (42.0-52.0); Hemoglobin 11.5 g/dL (14.0-18.0); Immature Granulocyte Absolute 0.02 K/mm3 (0.00-0.031); Immature Granulocyte Percent A 0.3 % (0-0.5); Lymphocytes Absolute Auto 3.13 K/mm3 (0.9-3.2); Lymphocytes Percent Auto 53.6 % (18.3-44.2); Mean Corpuscular HGB Conc 33.5 g/dl (32-36); Mean Corpuscular Hemoglobin 32.4 pg (26-34); Mean Corpuscular Volume 96.6 fl (80-100); Mean Platelet Volume 9.3 fl (7.4-10.4); Monocytes Absolute Auto 0.3 K/mm3 (0.1-0.6); Monocytes Percent Auto 5.5 % (2.6-8.5); Neutrophils Absolute Auto 2.1 K/mm3 (1.3-6.7); Neutrophils Percent Auto 36.4 % (45.5-73.1); Platelet Count Result 285 k/mm3 (150-375); Red Blood Count 3.55 M/mm3 (4.6-6.20); Red Cell Distribution Width 13.7 % (11.5-14.5); White Blood Count 5.8 K/mm3 (4.5-10.0)
[2021-12-23 19:49] LABS: Alanine Aminotransferase 34 U/L (6-50); Albumin Level 2.9 g/dL (3.5-5.1); Alkaline Phosphatase 189 U/L (38-126); Anion Gap 11 mmol/L (8-16); Aspartate Amino Transferase 46 U/L (17-59); Bilirubin,Total 0.3 mg/dL (0.2-1.3); Blood Urea Nitrogen 7 mg/dL (9-20); Calcium 7.9 mg/dL (8.4-10.2); Carbon Dioxide 28 mmol/L (22-30); Chloride 97 mmol/L (98-107); Estimated CRCL calculation 113 ml/min; Estimated Glomerular Filt Rate > 60; Glucose 111 mg/dL (65-110); Lipase 92 U/L (23-300); Potassium 3.2 mmol/L (3.4-5.0); Sodium 136 mmol/L (137-145)
[2021-12-23 19:51] LABS: Add Urine Microscopic? NO; Appearance Urine Clear (Clear); Bilirubin Urine Negative (Negative); Blood Urine Negative (Negative); Color Urine Yellow (Yellow); Glucose Urine UA Negative (Negative); Ketones Urine Negative (Negative); Leukocyte Esterase Ur Negative LEU/UL (Negative); Nitrate Urine Negative (Negative); Protein Urine Negative (Negative); Urobilinogen Urine 0.2 mg/dL (<2.0)
[2021-12-23] MEDS: HYDROmorphone HCL INJ (*CRX) 1 MG/ML SYR IV PUSH ×2 (19:51→21:06)
[2021-12-23] MEDS: ONDANSETRON INJ 4 MG/2 ML VIAL IV PUSH (19:51)
[2021-12-23] MEDS: SODIUM CHLORIDE 0.9% IV 1,000 ML 999 ML IV CONT ×2 (19:51→21:04)
[2021-12-23 20:00] VITALS: BP 107/76; PULSE 56; RESP 12; O2SAT 99
[2021-12-23] MEDS: POTASSIUM CHLORIDE 20 MEQ PACKET (FOR LIQUID) 40 MEQ PO (20:19)
[2021-12-23 20:45] VITALS: BP 118/84; PULSE 55; RESP 12; O2SAT 98
[2021-12-23] MEDS: AZITHROMYCIN 250 MG TABLET 500 MG PO (21:40)
[2021-12-23 21:44] VITALS: BP 124/72; PULSE 52; RESP 12; O2SAT 98
== END 2021-12-23 21:56 | disposition home or self-care (01) ==
PROVIDERS: Emergency Medicine; Emergency Provider Emergency Medicine; PCP Internal Medicine
DX: K86.1 Other chronic pancreatitis (principal); J18.9 Pneumonia, unspecified organism; I10 Essential (primary) hypertension; Z87.891 Personal history of nicotine dependence
CPT/HCPCS: 36415; 74177; 80053; 81003; 83690; 85025; 96361; 96374; 96375; 96376; 99284; A9270; J1170; J2405; J7030; Q9967

== ENCOUNTER 2022-01-20 13:13 | Emergency (ER) | payer BC, MEDICAID, SELFPAY ==
[2022-01-20 13:40] VITALS: BP 133/91; PULSE 70; RESP 18; TEMP 36.6; O2SAT 100
[2022-01-20 13:55] LABS: Basophils Percent Auto 0.1 % (0.2-1.2); Eosinophils Percent Auto 0.4 % (0-4.4); Hematocrit 37.5 % (42.0-52.0); Hemoglobin 12.1 g/dL (14.0-18.0); Immature Granulocyte Absolute 0.01 K/mm3 (0.00-0.031); Immature Granulocyte Percent A 0.1 % (0-0.5); Immature Platelet Fraction Pct 3.7 % (0.9-11.2); Lymphocytes Absolute Auto 1.93 K/mm3 (0.9-3.2); Lymphocytes Percent Auto 28.7 % (18.3-44.2); Mean Corpuscular HGB Conc 32.3 g/dl (32-36); Mean Corpuscular Volume 99.2 fl (80-100); Mean Platelet Volume 9.5 fl (7.4-10.4); Monocytes Absolute Auto 0.3 K/mm3 (0.1-0.6); Monocytes Percent Auto 4.8 % (2.6-8.5); Neutrophils Absolute Auto 4.4 K/mm3 (1.3-6.7); Neutrophils Percent Auto 65.9 % (45.5-73.1); Platelet Count Result 373 k/mm3 (150-375); Red Blood Count 3.78 M/mm3 (4.6-6.20); Red Cell Distribution Width 13.6 % (11.5-14.5); White Blood Count 6.7 K/mm3 (4.5-10.0)
[2022-01-20 14:11] LABS: Alanine Aminotransferase 15 U/L (6-50); Alkaline Phosphatase 140 U/L (38-126); Anion Gap 4 mmol/L (8-16); Aspartate Amino Transferase 20 U/L (17-59); Bilirubin,Total 0.4 mg/dL (0.2-1.3); Blood Urea Nitrogen 12 mg/dL (9-20); Calcium 8.3 mg/dL (8.4-10.2); Carbon Dioxide 29 mmol/L (22-30); Chloride 103 mmol/L (98-107); Estimated CRCL calculation 112 ml/min; Estimated Glomerular Filt Rate > 60; Glucose 113 mg/dL (65-110); Lipase 16 U/L (23-300); Potassium 4.1 mmol/L (3.4-5.0); Sodium 136 mmol/L (137-145)
--- NOTE | 2022-01-20 14:55 | PC.NURSE ---
Pt to the intake desk and states that he is going to leave. pt ambulated to the exit with no difficulty
[2022-01-20 15:13] LABS: Influenza A QL RT-PCR Negative (Negative); Influenza B QL RT-PCR Negative (Negative); SARS-CoV-2 RNA PCR Negative
== END 2022-01-20 15:40 | disposition left against medical advice (07) ==
LOC: ANHED 15:32
PROVIDERS: Emergency Medicine; Emergency Provider Emergency Medicine; PCP Internal Medicine
DX: R11.10 Vomiting, unspecified (principal); Z20.822 Contact with and (suspected) exposure to COVID-19
CPT/HCPCS: 36415; 80053; 83690; 85025; 85055; 87636; 99199

== ENCOUNTER 2022-01-31 14:54 | Outpatient (CLI) | payer BC, MEDICAID, SELFPAY ==
--- NOTE | ~2022-01-31 | US_ITS ---
EXAMINATION: US retroperitoneal comp DATE: 01/31/2022 15:43 INDICATION: R10.2 - Pelvic and perineal pain TECHNIQUE: Multiple grayscale and Doppler ultrasound images of the kidneys were obtained. COMPARISON: CT abdomen and pelvis 12/23/2021 FINDINGS: The right kidney measures 13.7 x 4.7 x 5.4 cm. The left kidney measures 11.0 x 4.7 x 5.5 cm. The kidn eys demonstrate normal parenchymal echogenicity. No renal mass. There is no hydronephrosis. The bladd er wall is markedly thickened. IMPRESSION: Marked bladder wall thickening which may be secondary to outlet compromise from prostatomegaly or cys titis. Correlate with urinalysis. Reviewed, dictated and finalized at location K. EL [employer] IMPRESSION: Marked bladder wall thickening which may be secondary to outlet compromise from prostatomegaly or cystitis. Correlate with urinalysis.
== END 2022-01-31 14:55 | disposition home or self-care (01) ==
LOC: ANHIMG 14:55
PROVIDERS: PCP Internal Medicine; Visit Provider Internal Medicine
DX: R10.2 Pelvic and perineal pain (principal); R30.0 Dysuria
CPT/HCPCS: 76770

== ENCOUNTER 2022-02-01 11:26 | Outpatient (CLI) | payer BC, MEDICAID, SELFPAY ==
[2022-02-01 12:32] LABS: Anion Gap 0 mmol/L (8-16); Blood Urea Nitrogen 9 mg/dL (9-20); Calcium 8.2 mg/dL (8.4-10.2); Carbon Dioxide 32 mmol/L (22-30); Chloride 102 mmol/L (98-107); Estimated Glomerular Filt Rate > 60; Glucose 83 mg/dL (65-110); Potassium 4.2 mmol/L (3.4-5.0); Sodium 134 mmol/L (137-145)
[2022-02-01 12:45] LABS: Amphetamine Screen Urine Negative (Negative); Barbiturate Screen Urine Negative (Negative); Benzodiazepines Screen Urine Positive (Negative); Cannabinoid Screen Urine Positive (Negative); Cocaine Screen Urine Negative (Negative); Methadone Screen Urine Negative (Negative); Opiate Screen Urine Positive (Negative); Phencyclidine Screen Urine Negative (Negative)
== END 2022-02-01 11:27 | disposition home or self-care (01) ==
LOC: ANHLAB 11:28
PROVIDERS: PCP Internal Medicine; Visit Provider Internal Medicine
DX: R10.2 Pelvic and perineal pain (principal); R30.0 Dysuria; Z51.81 Encounter for therapeutic drug level monitoring; Z79.891 Long term (current) use of opiate analgesic
CPT/HCPCS: 36415; 80048; 80307